=== PATIENT | female | born 1935 | race Caucasian/White ===

== ENCOUNTER 2020-07-12 14:33 | Outpatient (REF) | payer MEDICARE, SELFPAY ==
[2020-07-12 15:09] LABS: MANUAL DIFF FLAG SCAN; Mean Corpuscular Volume 97.1 fL (80-98); PLT CLUMP 1; SCAN SMEAR FLAG 1
[2020-07-12 15:11] LABS: Basophils Absolute Auto 0.1 X10*3/uL (0.0-0.2); Basophils Percent Auto 0.5 % (0-2); Eosinophils Percent Auto 0.1 % (0-4); Hematocrit 43.7 % (37-47); Imm Gran Abs Auto 0.06 X10*3/uL (0.00-0.03); Imm Gran Pct Auto 0.4 % (0.0-0.4); Lymphocytes Absolute Auto 3.3 X10*3/uL (1.2-4.9); Mean Corpuscular Hemoglobin 31.1 pg (27.0-33.0); Mean Platelet Volume 9.8 fL (9.4-12.3); Monocytes Absolute Auto 1.1 X10*3/uL (0.1-1.2); Neutrophils Absolute Auto 9.7 X10*3/uL (2.0-8.3); Platelet Count 327 X10*3/uL (160-400); White Blood Count 14.2 X10*3/uL (4.8-10.8)
[2020-07-12 15:33] LABS: Alanine Aminotransferase 16 U/L (0-31); Alkaline Phosphatase 90 U/L (39-117); Anion Gap 19 (12-20); Aspartate Amino Transferase 23 U/L (5-31); Bilirubin Total 0.6 mg/dL (0.0-1.0); Blood Urea Nitrogen 15 mg/dL (9-16); Calcium 9.7 mg/dL (8.4-10.2); Carbon Dioxide 27 mmol/L (22-29); Chloride 102 mmol/L (96-108); Cholesterol 187 mg/dL; Estimated Glomerular Filt Rate 28; Glucose Random 133 mg/dL (60-115); HDL Cholesterol 75 mg/dL; LDL Cholesterol Calculated 87 mg/dl; Potassium 3.3 mmol/L (3.3-5.1); Sodium 145 mmol/L (135-145); Total Protein 6.8 g/dL (6.5-8.0); Triglycerides 129 mg/dL
[2020-07-12 15:50] LABS: Thyroid Stimulating Hormone 1.47 uIU/mL (0.32-4.0)
[2020-07-12 16:30] LABS: SLIDE REVIEW VERIFIED
[2020-07-12 17:25] LABS: Vitamin B12 401 pg/mL (200-900)
== END 2020-07-12 14:34 | disposition home or self-care (01) ==
LOC: HO.LAB 14:33
PROVIDERS: PCP Internal Medicine; Visit Provider Internal Medicine
DX: Z00.00 Encounter for general adult medical examination without abnormal findings (principal); D51.9 Vitamin B12 deficiency anemia, unspecified; E03.9 Hypothyroidism, unspecified; F03.90 Unspecified dementia, unspecified severity, without behavioral disturbance, psychotic disturbance, mood disturbance, and anxiety; I12.0 Hypertensive chronic kidney disease with stage 5 chronic kidney disease or end stage renal disease; N18.5 Chronic kidney disease, stage 5; J44.1 Chronic obstructive pulmonary disease with (acute) exacerbation
CPT/HCPCS: 36415; 80053; 80061; 82607; 84443; 85025

== ENCOUNTER 2020-10-18 12:54 | Outpatient (REF) | payer MEDICARE, SELFPAY ==
[2020-10-18 13:32] LABS: MANUAL DIFF FLAG NO
[2020-10-18 13:35] LABS: Basophils Absolute Auto 0.1 X10*3/uL (0.0-0.2); Basophils Percent Auto 0.5 % (0-2); Hematocrit 44.6 % (37-47); Hemoglobin 14.9 g/dl (12.0-16.0); Imm Gran Abs Auto 0.07 X10*3/uL (0.00-0.03); Imm Gran Pct Auto 0.5 % (0.0-0.4); Lymphocytes Absolute Auto 3.9 X10*3/uL (1.2-4.9); Lymphocytes Percent Auto 27.3 % (20-40); Mean Corpuscular HGB Conc 33.4 g/dl (31.0-35.0); Mean Corpuscular Hemoglobin 31.5 pg (27.0-33.0); Mean Corpuscular Volume 94.3 fL (80-98); Mean Platelet Volume 9.3 fL (9.4-12.3); Monocytes Percent Auto 6.7 % (2-11); Neutrophils Absolute Auto 9.2 X10*3/uL (2.0-8.3); Platelet Count 344 X10*3/uL (160-400); Red Blood Count 4.73 X10*6/uL (4.20-5.50); Red Cell Distribution Width 14.6 % (11.0-16.0); White Blood Count 14.2 X10*3/uL (4.8-10.8)
[2020-10-18 14:09] LABS: Alanine Aminotransferase 8 U/L (0-31); Albumin Level 3.9 g/dL (3.5-5.0); Alkaline Phosphatase 98 U/L (39-117); Anion Gap 16 (12-20); Aspartate Amino Transferase 15 U/L (5-31); Bilirubin Total 0.6 mg/dL (0.0-1.0); Blood Urea Nitrogen 13 mg/dL (9-16); Calcium 9.9 mg/dL (8.4-10.2); Carbon Dioxide 33 mmol/L (22-29); Chloride 98 mmol/L (96-108); Cholesterol 180 mg/dL; Estimated Glomerular Filt Rate 30; Glucose Random 123 mg/dL (60-115); HDL Cholesterol 68 mg/dL; LDL Cholesterol Calculated 87 mg/dl; Potassium 2.7 mmol/L (3.3-5.1); Sodium 144 mmol/L (135-145); Total Protein 6.7 g/dL (6.5-8.0); Triglycerides 125 mg/dL
[2020-10-18 14:25] LABS: Thyroid Stimulating Hormone 1.45 uIU/mL (0.32-4.0)
[2020-10-18 14:32] LABS: Vitamin B12 343 pg/mL (200-900)
[2020-10-21 13:02] LABS: Prot Elec - Albumin 3.7 g/dL (3.8-4.8); Prot Elec - Alpha1 0.5 g/dL (0.2-0.3); Prot Elec - Alpha2 0.9 g/dL (0.5-0.9); Prot Elec - Beta 1 0.4 g/dL (0.4-0.6); Prot Elec - Beta 2 0.4 g/dL (0.2-0.5); Prot Elec - Gamma 0.7 g/dL (0.8-1.7); Prot Elec - Total Protein 6.6 g/dL (6.1-8.1)
== END 2020-10-18 12:55 | disposition home or self-care (01) ==
LOC: HO.LAB 12:54
PROVIDERS: PCP Internal Medicine; Visit Provider Internal Medicine
DX: E03.9 Hypothyroidism, unspecified (principal); F03.90 Unspecified dementia, unspecified severity, without behavioral disturbance, psychotic disturbance, mood disturbance, and anxiety; I12.0 Hypertensive chronic kidney disease with stage 5 chronic kidney disease or end stage renal disease; R63.0 Anorexia; N18.5 Chronic kidney disease, stage 5
CPT/HCPCS: 36415; 80053; 80061; 82607; 82746; 84165; 84443; 85025

== ENCOUNTER 2021-03-05 15:35 | Outpatient (REF) | payer MEDICARE, SELFPAY ==
[2021-03-05 15:57] LABS: MANUAL DIFF FLAG NO
[2021-03-05 17:15] LABS: Basophils Absolute Auto 0.1 X10*3/uL (0.0-0.2); Basophils Percent Auto 0.5 % (0-2); Hematocrit 44.5 % (37.0-47.0); Hemoglobin 13.9 g/dl (12.0-16.0); Imm Gran Abs Auto 0.11 X10*3/uL (0.00-0.03); Imm Gran Pct Auto 0.7 % (0.0-0.4); Lymphocytes Absolute Auto 4.7 X10*3/uL (1.2-4.9); Lymphocytes Percent Auto 29.2 % (20-40); Mean Corpuscular HGB Conc 31.2 g/dl (31.0-35.0); Mean Corpuscular Hemoglobin 31.4 pg (27.0-33.0); Mean Corpuscular Volume 100.7 fL (80.0-98.0); Mean Platelet Volume 9.8 fL (9.4-12.3); Monocytes Absolute Auto 0.9 X10*3/uL (0.1-1.2); Monocytes Percent Auto 5.8 % (2-11); Neutrophils Absolute Auto 10.2 x10*3/uL (2.0-8.3); Neutrophils Percent Auto 63.8 % (45-73); Platelet Count 386 X10*3/uL (160-400); Red Blood Count 4.42 X10*6/uL (4.20-5.50); Red Cell Distribution Width 15.2 % (11.0-16.0)
[2021-03-05 17:45] LABS: Alanine Aminotransferase 13 U/L (0-31); Albumin Level 3.9 g/dL (3.5-5.0); Alkaline Phosphatase 89 U/L (39-117); Anion Gap 21 (12-20); Aspartate Amino Transferase 21 U/L (5-31); Bilirubin Total 0.6 mg/dL (0.0-1.0); Blood Urea Nitrogen 27 mg/dL (9-16); Calcium 10.1 mg/dL (8.4-10.2); Carbon Dioxide 21 mmol/L (22-29); Chloride 108 mmol/L (96-108); Estimated Glomerular Filt Rate 26; Glucose Random 128 mg/dL (60-115); Potassium 4.2 mmol/L (3.3-5.1); Sodium 146 mmol/L (135-145)
== END 2021-03-05 15:36 | disposition home or self-care (01) ==
LOC: HO.LAB 15:35
PROVIDERS: PCP Internal Medicine; Visit Provider Internal Medicine
DX: E03.8 Other specified hypothyroidism (principal); F02.80 Dementia in other diseases classified elsewhere, unspecified severity, without behavioral disturbance, psychotic disturbance, mood disturbance, and anxiety; I12.0 Hypertensive chronic kidney disease with stage 5 chronic kidney disease or end stage renal disease; N18.9 Chronic kidney disease, unspecified; R63.4 Abnormal weight loss
CPT/HCPCS: 36415; 80053; 85025

== ENCOUNTER 2021-05-11 15:34 | Inpatient (IN) | payer MEDICARE, SELFPAY ==
[2021-05-11] VITALS (8 sets, daily range): BP systolic 106–118; BP diastolic 45–79; PULSE 77–98; RESP 29–39; TEMP 35.5; O2SAT 85–98; BMI 18.8
--- NOTE | ~2021-05-11 | XR_ITS ---
EXAMINATION: XR CHEST CLINICAL INFORMATION: Hypoxia COMPARISON: 03/18/2019 TECHNIQUE: 2 views of the chest were obtained. FINDINGS: Lungs hyperinflated. Bilateral bronchiectatic changes. No discrete consolidation. Biapical pleural-parenchymal scarring unchanged. No pleural effusion or pneumothorax. Heart size and pulmonary vascularity within normal limits. Aorta is atherosclerotic. XR/XR chest 1V IMPRESSION: No acute findings. Emphysema and bronchiectasis.
--- NOTE | ~2021-05-11 | CT_ITS ---
EXAMINATION: CT HEAD WITHOUT CONTRAST CLINICAL INFORMATION: Altered mental status. Weakness. COMPARISON: None TECHNIQUE: Contiguous axial imaging was performed from the skull base to vertex without intravenous administration of contrast. This CT examination was performed using dose optimization techniques as appropriate, variously including the following: *Automated exposure control *Adjustment of mA and/or kV according to patient size (this includes techniques or standardized protocols for targeted exams where dose is matched to indication/reason for exam; i.e. extremities or head) *Use of iterative reconstruction technique DLP: 569 mGy-cm FINDINGS: There is atherosclerotic calcification of cavernous carotid arteries and proximal intradural segments of vertebral arteries.. Patchy hypoattenuation within supratentorial white matter from chronic microangiopathy. Moderate volume loss with commensurate prominence of ventricles and sulci. No hydrocephalus. There is an area of hypoattenuation/gliosis from infarction in the right parietal lobe. No findings of an acute major vascular territory infarction. No intracranial hemorrhage or extra-axial fluid collection. There appear to be prominent perivascular spaces inferior to the basal ganglia. 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 The calvarium is intact. The visualized paranasal sinuses, mastoid air cells and middle ear cavities are well aerated. There been ocular lens replacements. CT/CT head/brain wo con IMPRESSION: * Moderate volume loss and small vessel ischemic changes of the supratentorial white matter. 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 * No intracranial hemorrhage or other acute intracranial pathology.
--- NOTE | 2021-05-11 16:32 | ECG_ITS ---
Test Reason : shortness of breath Blood Pressure : / mmHG Vent. Rate : 077 BPM Atrial Rate : 077 BPM P-R Int : 104 ms QRS Dur : 062 ms QT Int : 364 ms P-R-T Axes : 068 062 060 degrees QTc Int : 411 ms Sinus rhythm with short NM with Premature atrial complexes Otherwise normal ECG When compared with ECG of 18-MAR-2019 15:53, Premature atrial complexes are now Present T wave inversion no longer evident in Lateral leads Referred By: Eliane Fraga Electronically Signed By:Ruel Arellano
[2021-05-11 16:39] LABS: Basophils Absolute Auto 0.1 X10*3/uL (0.0-0.2); Basophils Percent Auto 0.4 % (0-2); Hematocrit 53.3 % (37.0-47.0); Imm Gran Abs Auto 0.41 X10*3/uL (0.00-0.03); Imm Gran Pct Auto 1.9 % (0.0-0.4); Lymphocytes Absolute Auto 0.9 X10*3/uL (1.2-4.9); Lymphocytes Percent Auto 4.2 % (20-40); MANUAL DIFF FLAG NO; Mean Corpuscular Hemoglobin 31.6 pg (27.0-33.0); Mean Corpuscular Volume 105.3 fL (80.0-98.0); Monocytes Absolute Auto 1.2 X10*3/uL (0.1-1.2); Monocytes Percent Auto 5.5 % (2-11); NRBC Pct Auto 0.1 /100WBC (0.0-0.2); Platelet Count 185 X10*3/uL (160-400); Red Blood Count 5.06 X10*6/uL (4.20-5.50); Red Cell Distribution Width 16.5 % (11.0-16.0); White Blood Count 21.5 X10*3/uL (4.8-10.8)
--- NOTE | 2021-05-11 16:40 | ED.AMS ---
HPI - Altered Mental Status General Stated Complaint: Weakness/loss of Appettite Time Seen by Provider: 05/11/21 16:15 Source: patient and EMS Mode of arrival: EMS History of Present Illness HPI narrative: 86-year-old female with past medical history of COPD, dementia, BIBA from home for reported failure to thrive. Per son/welder apprentice combination patient with increasing weakness for the past 4 days, with inability to use walker, interact or use draw to drink, +anorexia. At baseline one-word answers. Denies known fever History limited due to patient's acute mental status/baseline dementia MD complaint: altered mental status, confusion and weakness Onset (ago): day(s) Related Data Home Medications Medication Instructions Recorded Confirmed atorvastatin 20 mg tablet 1 tab PO BEDTIME 05/11/21 05/11/21 donepezil 10 mg tablet 1 tab PO DAILY 05/11/21 05/11/21 levothyroxine 50 mcg tablet 1 tab PO DAILY 05/11/21 05/11/21 nifedipine 60 mg tablet,extended 1 tab PO DAILY 05/11/21 05/11/21 release potassium chloride 20 mEq 1 tab PO BID 05/11/21 05/11/21 tablet,extended release(part/cryst) (Klor-Con M) prednisone 5 mg tablet 1 tab PO DAILY 05/11/21 05/11/21 Allergies Allergy/AdvReac Type Severity Reaction Status Date / Time No Known Allergies Allergy Unverified 11/30/19 15:42 [No Known Allergies*] Review of Systems Review of Systems: Constitutional: No Fever, + Fatigue, + Malaise, +anorexia Cardiovascular: No Chest Pain, No SOB, + Edema Respiratory: No Cough, No Sputum, + Dyspnea Gastrointestinal: No Nausea, No Vomiting, No Diarrhea, No Constipation, No Abdominal pain Skin: No Skin Lesions, No rash Neuro: + Weakness ROS limited secondary to patient's baseline dementia and acute mental status Yes all other systems are reviewed and are negative PMFSH Past Medical History Attestation statement: The following information was validated with the patient. Social History Social History Advance Directives: No Advance Directives Information Provided: No Physical Exam ED Vital Signs: Vital Signs - 24 hr 05/11/21 16:51 05/11/21 17:04 05/11/21 17:22 Temperature 96 F L Pulse Rate 77 78 Respiratory Rate 37 H 39 H Blood Pressure Pulse Oximetry 85 L 95 05/11/21 18:56 05/11/21 19:05 05/11/21 19:11 Temperature Pulse Rate 98 77 Respiratory Rate 31 H 33 H Blood Pressure 106/64 118/45 L Pulse Oximetry 95 05/11/21 20:25 Temperature Pulse Rate 81 Respiratory Rate 30 H Blood Pressure 108/79 Pulse Oximetry 97 BMI result Body Mass Index 18.8 Const Other: nonverbal/not responding or following commands General: alert and awake Limitations: altered mental status HENMT Head: Yes normal to inspection and Yes atraumatic Ears: hearing grossly normal bilaterally General nose exam: Normal external nose present Face and sinus: Yes normal facial exam Mouth: mucous membranes dry Eyes General: appearance normal, both eyes and all related structures Pupils: Equal, round and reactive pupils present EOM: EOMs intact bilaterally Neck Neck: Yes normal visual inspection and Yes no meningeal signs Resp Effort & Inspection: tachypneic Auscultation: crackles bilateral throughout Cardio Rate: regular rate Heart sounds: S1 normal heart sound present and S2 normal heart sound present GI Inspection: Yes normal to inspection Palpation (GI): Soft to palpation, nontender, no guarding and not rigid Skin Rashes: no rashes Wounds: no wounds Neuro General: no meningeal signs Cranial nerves: Yes Equal, round and reactive pupils present Course Course Course Narrative: XR chest 1V IMPRESSION: No acute findings. Emphysema and bronchiectasis. -1707--leukocytosis of 21.5 (patient is on chronic prednisone contributing to acute on chronic leukocytosis. -1800--hypernatremic to 161 > will start D5w after 1L NS -Hyperkalemic 7.7, anion gap of 26, SHIVA with BUN of 114 and creatinine of 4.51 > likely from starvation ketoacidosis > amp D50, insulin, calcium gluconate and Lokelma ordered -case d/w Dr. Barrientos CT head/brain wo con IMPRESSION: *? Moderate volume loss and small vessel ischemic changes of the supratentorial white matter. *? 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 *? No intracranial hemorrhage or other acute intracranial pathology. -1828--lactic acidosis 3.8 likely starvation/dehydration. Lokelma discontinued as patient unable to tolerate p.o. due to aspiration risk -UA infected, infection now suspected. -193--troponin 930.5 likely from renal dysfunction > will obtain for a repeat -2028--patient admitted for further management -repeat Chem 7 with mild improvement in sodium, potassium, and creatinine. Lactic equivocal. D5W being started now. Will give an amp of bicarb, additional D50 and insulin MDM - Altered Mental Status MDM Narrative Medical decision making narrative: 86-year-old female with past medical history of COPD, dementia, BIBA from home for reported failure to thrive. On exam tachypneic, 85% on RA > 97% on 3L NC, diffuse crackles, awake/alert nonverbal/not responding or following commands. Concern for FTT and dehydrationg with metabolic abnormalitites. Concern for COPD exacerbation vs CHF vs pleural effusion vs viral syndrome his COVID-19 vs pneumonia or other infectious etiologies. Plan: EKG, labs, UA, CXR, head CT, IVF, lactic/blood cultures, empiric IV antibiotics, re-evaluate. Anticipated admission Differential Diagnosis Differential diagnosis: Likely delirium, dementia and encephalopathy Medical Records Attestation: I reviewed the patient's medical records. Lab Data Attestation: I reviewed the patient's lab results. Result diagrams: 05/11/21 16:17 05/11/21 19:58 Labs: Lab Results 05/11/21 05/11/21 05/11/21 Range/Units 16:17 17:30 17:51 WBC 21.5 H (4.8-10.8) X10*3/uL RBC 5.06 (4.20-5.50) X10*6/uL Hgb 16.0 (12.0-16.0) g/dl Hct 53.3 H (37.0-47.0) % MCV 105.3 H (80.0-98.0) fL MCH 31.6 (27.0-33.0) pg MCHC 30.0 L (31.0-35.0) g/dl RDW 16.5 H (11.0-16.0) % Plt Count 185 D (160-400) X10*3/uL MPV 12.0 (9.4-12.3) fL Immature Gran % (Auto) 1.9 H (0.0-0.4) % Neut % (Auto) 88.0 H (45-73) % Lymph % (Auto) 4.2 L (20-40) % [place] % (Auto) 5.5 (2-11) % Eos % (Auto) 0.0 (0-4) % Baso % (Auto) 0.4 (0-2) % Lymph # (Auto) 0.9 L (1.2-4.9) X10*3/uL [place] # (Auto) 1.2 (0.1-1.2) X10*3/uL Eos # (Auto) 0.0 (0.0-0.4) X10*3/uL Baso # (Auto) 0.1 (0.0-0.2) X10*3/uL Abs Immat Gran (auto) 0.41 H (0.00-0.03) X10*3/uL Absolute Neuts (auto) 19.0 H (2.0-8.3) x10*3/uL Absolute Nucleated RBC 0.020 H (0.0-0.012) X10*3/uL Nucleated RBC % (auto) 0.1 (0.0-0.2) /100WBC PT (9.9-13.0) SEC INR (0.9-1.1) Sodium 161 H* (135-145) mmol/L Potassium 7.7 H* D (3.3-5.1) mmol/L Chloride 128 H (96-108) mmol/L Carbon Dioxide 15 L (22-29) mmol/L Anion Gap 26 H (12-20) BUN 114 H D (9-16) mg/dL Creatinine 4.51 H* (0.5-1.4) mg/dL Estim Creat Clear Calc 6.8 Estimated GFR 9 POC Glucose (60-115) mg/dL Random Glucose 122 H (60-115) mg/dL Lactic Acid (0.5-2.0) mmol/L Lactic Acid F/U @ 2Hr (0.5-2.0) mmol/L Calcium 10.3 H (8.4-10.2) mg/dL Magnesium 3.3 H (1.6-2.6) mg/dL Total Bilirubin 0.6 (0.0-1.0) mg/dL Direct Bilirubin 0.3 (0.0-0.5) mg/dL AST 29 (5-31) U/L ALT 31 (0-31) U/L Alkaline Phosphatase 99 (39-117) U/L Ammonia 32 (13-55) umol/L Troponin I High Sens (<3.5-17.0) ng/L B-Natriuretic Peptide (<100) pg/mL Total Protein 6.3 L (6.5-8.0) g/dL Albumin 3.6 (3.5-5.0) g/dL Urine Color Urine Appearance Urine pH (5.0-8.0) Ur Specific [place] (1.005-1.025) Urine Protein (NEG-TRACE) MG/DL Urine Glucose (UA) (NEG) MG/DL Urine Ketones (NEG) MG/DL Urine Blood (NEG) Urine Nitrite (NEG) Ur Leukocyte Esterase (NEG) Urine RBC (0) /HPF Urine WBC (0-4) /HPF Ur Squamous Epith Cells /LPF Urine Bacteria /LPF COVID-19 (PEDRO) (Negative) COVID-19 Clin Com Influenza Type A (PCR) (Negative) Influenza Type B (PCR) (Negative) RSV RNA Qual (PCR) (Negative) SARS-CoV-2 RNA (RT-PCR) (Negative) 05/11/21 05/11/21 05/11/21 Range/Units 17:51 17:51 17:52 WBC (4.8-10.8) X10*3/uL RBC (4.20-5.50) X10*6/uL Hgb (12.0-16.0) g/dl Hct (37.0-47.0) % MCV (80.0-98.0) fL MCH (27.0-33.0) pg MCHC (31.0-35.0) g/dl RDW (11.0-16.0) % Plt Count (160-400) X10*3/uL MPV (9.4-12.3) fL Immature Gran % (Auto) (0.0-0.4) % Neut % (Auto) (45-73) % Lymph % (Auto) (20-40) % [place] % (Auto) (2-11) % Eos % (Auto) (0-4) % Baso % (Auto) (0-2) % Lymph # (Auto) (1.2-4.9) X10*3/uL [place] # (Auto) (0.1-1.2) X10*3/uL Eos # (Auto) (0.0-0.4) X10*3/uL Baso # (Auto) (0.0-0.2) X10*3/uL Abs Immat Gran (auto) (0.00-0.03) X10*3/uL Absolute Neuts (auto) (2.0-8.3) x10*3/uL Absolute Nucleated RBC (0.0-0.012) X10*3/uL Nucleated RBC % (auto) (0.0-0.2) /100WBC PT (9.9-13.0) SEC INR (0.9-1.1) Sodium (135-145) mmol/L Potassium (3.3-5.1) mmol/L Chloride (96-108) mmol/L Carbon Dioxide (22-29) mmol/L Anion Gap (12-20) BUN (9-16) mg/dL Creatinine (0.5-1.4) mg/dL Estim Creat Clear Calc Estimated GFR POC Glucose (60-115) mg/dL Random Glucose (60-115) mg/dL Lactic Acid 3.8 H* (0.5-2.0) mmol/L Lactic Acid F/U @ 2Hr (0.5-2.0) mmol/L Calcium (8.4-10.2) mg/dL Magnesium (1.6-2.6) mg/dL Total Bilirubin (0.0-1.0) mg/dL Direct Bilirubin (0.0-0.5) mg/dL AST (5-31) U/L ALT (0-31) U/L Alkaline Phosphatase (39-117) U/L Ammonia (13-55) umol/L Troponin I High Sens (<3.5-17.0) ng/L B-Natriuretic Peptide (<100) pg/mL Total Protein (6.5-8.0) g/dL Albumin (3.5-5.0) g/dL Urine Color Urine Appearance Urine pH (5.0-8.0) Ur Specific [place] (1.005-1.025) Urine Protein (NEG-TRACE) MG/DL Urine Glucose (UA) (NEG) MG/DL Urine Ketones (NEG) MG/DL Urine Blood (NEG) Urine Nitrite (NEG) Ur Leukocyte Esterase (NEG) Urine RBC (0) /HPF Urine WBC (0-4) /HPF Ur Squamous Epith Cells /LPF Urine Bacteria /LPF COVID-19 (PEDRO) Negative (Negative) COVID-19 Clin Com See Note Influenza Type A (PCR) NEGATIVE (Negative) Influenza Type B (PCR) NEGATIVE (Negative) RSV RNA Qual (PCR) NEGATIVE (Negative) SARS-CoV-2 RNA (RT-PCR) NEGATIVE (Negative) 05/11/21 05/11/21 05/11/21 Range/Units 18:15 18:38 18:39 WBC (4.8-10.8) X10*3/uL RBC (4.20-5.50) X10*6/uL Hgb (12.0-16.0) g/dl Hct (37.0-47.0) % MCV (80.0-98.0) fL MCH (27.0-33.0) pg MCHC (31.0-35.0) g/dl RDW (11.0-16.0) % Plt Count (160-400) X10*3/uL MPV (9.4-12.3) fL Immature Gran % (Auto) (0.0-0.4) % Neut % (Auto) (45-73) % Lymph % (Auto) (20-40) % [place] % (Auto) (2-11) % Eos % (Auto) (0-4) % Baso % (Auto) (0-2) % Lymph # (Auto) (1.2-4.9) X10*3/uL [place] # (Auto) (0.1-1.2) X10*3/uL Eos # (Auto) (0.0-0.4) X10*3/uL Baso # (Auto) (0.0-0.2) X10*3/uL Abs Immat Gran (auto) (0.00-0.03) X10*3/uL Absolute Neuts (auto) (2.0-8.3) x10*3/uL Absolute Nucleated RBC (0.0-0.012) X10*3/uL Nucleated RBC % (auto) (0.0-0.2) /100WBC PT 11.3 (9.9-13.0) SEC INR 1.0 (0.9-1.1) Sodium (135-145) mmol/L Potassium (3.3-5.1) mmol/L Chloride (96-108) mmol/L Carbon Dioxide (22-29) mmol/L Anion Gap (12-20) BUN (9-16) mg/dL Creatinine (0.5-1.4) mg/dL Estim Creat Clear Calc Estimated GFR POC Glucose (60-115) mg/dL Random Glucose (60-115) mg/dL Lactic Acid (0.5-2.0) mmol/L Lactic Acid F/U @ 2Hr (0.5-2.0) mmol/L Calcium (8.4-10.2) mg/dL Magnesium (1.6-2.6) mg/dL Total Bilirubin (0.0-1.0) mg/dL Direct Bilirubin (0.0-0.5) mg/dL AST (5-31) U/L ALT (0-31) U/L Alkaline Phosphatase (39-117) U/L Ammonia (13-55) umol/L Troponin I High Sens 950.5 H* (<3.5-17.0) ng/L B-Natriuretic Peptide 88 (<100) pg/mL Total Protein (6.5-8.0) g/dL Albumin (3.5-5.0) g/dL Urine Color BROWN A Urine Appearance TURBID Urine pH 8.0 (5.0-8.0) Ur Specific [place] 1.020 (1.005-1.025) Urine Protein 3+ H (NEG-TRACE) MG/DL Urine Glucose (UA) NEG (NEG) MG/DL Urine Ketones 5 (NEG) MG/DL Urine Blood 3+ H (NEG) Urine Nitrite NEG (NEG) Ur Leukocyte Esterase 3+ H (NEG) Urine RBC 30-49 H (0) /HPF Urine WBC TNTC H (0-4) /HPF Ur Squamous Epith Cells NONE /LPF Urine Bacteria 4+ /LPF COVID-19 (PEDRO) (Negative) COVID-19 Clin Com Influenza Type A (PCR) (Negative) Influenza Type B (PCR) (Negative) RSV RNA Qual (PCR) (Negative) SARS-CoV-2 RNA (RT-PCR) (Negative) 05/11/21 05/11/21 05/11/21 Range/Units 19:49 19:58 20:04 WBC (4.8-10.8) X10*3/uL RBC (4.20-5.50) X10*6/uL Hgb (12.0-16.0) g/dl Hct (37.0-47.0) % MCV (80.0-98.0) fL MCH (27.0-33.0) pg MCHC (31.0-35.0) g/dl RDW (11.0-16.0) % Plt Count (160-400) X10*3/uL MPV (9.4-12.3) fL Immature Gran % (Auto) (0.0-0.4) % Neut % (Auto) (45-73) % Lymph % (Auto) (20-40) % [place] % (Auto) (2-11) % Eos % (Auto) (0-4) % Baso % (Auto) (0-2) % Lymph # (Auto) (1.2-4.9) X10*3/uL [place] # (Auto) (0.1-1.2) X10*3/uL Eos # (Auto) (0.0-0.4) X10*3/uL Baso # (Auto) (0.0-0.2) X10*3/uL Abs Immat Gran (auto) (0.00-0.03) X10*3/uL Absolute Neuts (auto) (2.0-8.3) x10*3/uL Absolute Nucleated RBC (0.0-0.012) X10*3/uL Nucleated RBC % (auto) (0.0-0.2) /100WBC PT (9.9-13.0) SEC INR (0.9-1.1) Sodium 159 H (135-145) mmol/L Potassium 6.6 H* (3.3-5.1) mmol/L Chloride 129 H (96-108) mmol/L Carbon Dioxide 15 L (22-29) mmol/L Anion Gap 22 H (12-20) BUN 110 H (9-16) mg/dL Creatinine 4.35 H* (0.5-1.4) mg/dL Estim Creat Clear Calc 7.1 Estimated GFR 10 POC Glucose 194 H (60-115) mg/dL Random Glucose 232 H (60-115) mg/dL Lactic Acid (0.5-2.0) mmol/L Lactic Acid F/U @ 2Hr 3.8 H* (0.5-2.0) mmol/L Calcium 9.7 (8.4-10.2) mg/dL Magnesium (1.6-2.6) mg/dL Total Bilirubin (0.0-1.0) mg/dL Direct Bilirubin (0.0-0.5) mg/dL AST (5-31) U/L ALT (0-31) U/L Alkaline Phosphatase (39-117) U/L Ammonia (13-55) umol/L Troponin I High Sens (<3.5-17.0) ng/L B-Natriuretic Peptide (<100) pg/mL Total Protein (6.5-8.0) g/dL Albumin (3.5-5.0) g/dL Urine Color Urine Appearance Urine pH (5.0-8.0) Ur Specific [place] (1.005-1.025) Urine Protein (NEG-TRACE) MG/DL Urine Glucose (UA) (NEG) MG/DL Urine Ketones (NEG) MG/DL Urine Blood (NEG) Urine Nitrite (NEG) Ur Leukocyte Esterase (NEG) Urine RBC (0) /HPF Urine WBC (0-4) /HPF Ur Squamous Epith Cells /LPF Urine Bacteria /LPF COVID-19 (PEDRO) (Negative) COVID-19 Clin Com Influenza Type A (PCR) (Negative) Influenza Type B (PCR) (Negative) RSV RNA Qual (PCR) (Negative) SARS-CoV-2 RNA (RT-PCR) (Negative) ECG Data ECG #1: ECG interpretation time: 16:57 Interpretation: EKG sinus rhythm iterative 77. Artifact present. Q-wave in V1. No STEMI. QTC 411 Critical Care Time Critical Care Time Critical Care Time: Yes Total Critical Care Time: 60 Attestation: I have personally provided critical care time exclusive of time spent on separately billable procedures. Time includes review of lab data, radiology results, discussion with consultants, and monitoring for potential decompensation. Intervention performed as documented. Discharge Plan Discharge Clinical Impression: Acute UTI, COPD (chronic obstructive pulmonary disease), Acute kidney injury superimposed on CKD, Acute hyperkalemia, Acute hypernatremia Patient Disposition: Admitted As Inpatient
[2021-05-11] MEDS: 0.9 % Sodium Chloride 1,000 ML 999 ML IV (16:50)
--- NOTE | 2021-05-11 16:54 | PC.NURSE ---
This Us Called phlebotomy for the pct at 1654 for room 21
[2021-05-11] MEDS: Albuterol/Iprat 2.5/0.5MG 3 ML AMPUL.NEB INHALE ×2 (17:04→18:55)
--- NOTE | 2021-05-11 17:13 | PHA.MEDREC ---
Pharmacy Consult ? Medication Reconciliation Pharmacy has completed the medication reconciliation. Spoke with the patients son, who said she was struggling to take medications the last few days but he got her to take them last on 05/10.
[2021-05-11 17:58] LABS: Alanine Aminotransferase 31 U/L (0-31); Albumin Level 3.6 g/dL (3.5-5.0); Alkaline Phosphatase 99 U/L (39-117); Anion Gap 26 (12-20); Aspartate Amino Transferase 29 U/L (5-31); Bilirubin Direct 0.3 mg/dL (0.0-0.5); Bilirubin Total 0.6 mg/dL (0.0-1.0); Blood Urea Nitrogen 114 mg/dL (9-16); Calcium 10.3 mg/dL (8.4-10.2); Carbon Dioxide 15 mmol/L (22-29); Chloride 128 mmol/L (96-108); Creatinine Clr Calc Pharmacy 6.8; Estimated Glomerular Filt Rate 9; Glucose Random 122 mg/dL (60-115); Magnesium 3.3 mg/dL (1.6-2.6); Potassium 7.7 mmol/L (3.3-5.1); Sodium 161 mmol/L (135-145); Total Protein 6.3 g/dL (6.5-8.0)
[2021-05-11 18:15] LABS: Ammonia 32 umol/L (13-55)
[2021-05-11 18:17] LABS: COVID-19 Test Negative (Negative)
[2021-05-11 18:26] LABS: Lactic Acid 3.8 mmol/L (0.5-2.0)
[2021-05-11 18:41] LABS: Influenza A PCR NEGATIVE (Negative); Influenza B PCR NEGATIVE (Negative); Resp Syncy Virus RNA Qual PCR NEGATIVE (Negative); SARS COV2 PCR INHOUSE NEGATIVE (Negative)
[2021-05-11 18:49] LABS: Appearance Urine TURBID; Color Urine BROWN; Glucose Urine UA NEG (NEG); Leukocyte Esterase Urine 3+ (NEG); Nitrite Urine NEG (NEG); UACC Culture Trigger YES; Urine Blood 3+ (NEG); Urine Ketones 5 MG/DL (NEG); Urine Protein 3+ MG/DL (NEG-TRACE)
[2021-05-11] MEDS: Calcium Gluconate/NaCl,Iso-Osm 1 GM/50 ML PLAST..BAG IV (18:49)
[2021-05-11] MEDS: cefTRIAXone sodium 1 GM in 0.9 % Sodium Chloride 50 ML IV (18:52)
[2021-05-11] MEDS: Dextrose 50 % 25 GM/50 ML SYRINGE IVPUSH ×3 (18:57→22:31)
[2021-05-11] MEDS: Insulin Regular, Human 100 UNIT/ML 3 ML VIAL IVPUSH ×3 (18:58→22:27)
[2021-05-11 18:59] LABS: Prothrombin Time 11.3 SEC (9.9-13.0)
[2021-05-11 19:05] LABS: Bacteria Urine 4+ /LPF; RBC Urine 30-49 /HPF (0); WBC Urine TNTC /HPF (0-4)
[2021-05-11 19:27] LABS: B Type Natriuretic Peptide 88 pg/mL (<100); Troponin-I High Sensitivity 950.5 ng/L (<3.5-17.0)
[2021-05-11 19:52] LABS: Glucose, Whole Blood 194 mg/dL (60-115)
[2021-05-11 19:58] LABS: Reflex Lactate? Lactic Acid Added
--- NOTE | 2021-05-11 20:26 | PC.NURSE ---
patient noted to be slightly more responsive to pain at this time, but continues to be non-verbal. patient is in no obvious distress. noted to move all extremities independently when exposed to pain. patient eyes equal and reactive. family updated on patient condition and plan of care. patient lung sounds are improved after breathing treatments
[2021-05-11 20:31] LABS: ~Lactic Acid-LAB USE ONLY 3.8 mmol/L (0.5-2.0)
[2021-05-11 20:32] LABS: Anion Gap 22 (12-20); Blood Urea Nitrogen 110 mg/dL (9-16); Calcium 9.7 mg/dL (8.4-10.2); Carbon Dioxide 15 mmol/L (22-29); Chloride 129 mmol/L (96-108); Creatinine Clr Calc Pharmacy 7.1; Estimated Glomerular Filt Rate 10; Glucose Random 232 mg/dL (60-115); Potassium 6.6 mmol/L (3.3-5.1); Sodium 159 mmol/L (135-145)
[2021-05-11] MEDS: Dextrose 5 % 1,000 ML 125 ML IVCONT (20:38)
[2021-05-11] MEDS: Sodium Bicarbonate 8.4% 50 MEQ/50 ML SYRINGE IVPUSH (20:46)
--- NOTE | 2021-05-11 20:56 | P.HPHOSP_ITS ---
History of Present Illness Date of Service: 05/11/21 Chief Complaint: dehydration This is an 86-year-old female with unknown past medical history was brought into the hospital by her son with reports of decreased intake and increased lethargy. Patient is awake, alert, but does not respond to any of the questio ns. Apparently she lives at home with her son, has not been eating or drinking for few days. Usually able to respond with 1 word answers according to her son but has been declining. She usually ambulates with her walker but has now become nonambulatory. I tried to reach her son's using the numbers on file 1 of them is a fax and the other 1 is a wrong number. I am unable to complete review of system is patient is not responding verbally. She is able to track with her eyes but does not answer. On arrival to the ED patient has a temp of 96 degrees, respiratory rate of 37, heart rate of 77, satting 85% on room air. labs are significant for WBC count of 21.5, sodium of 161, potassium of 7.7, chloride of 128, BUN of 114, creatinine of 4.5 with a baseline around 1.6-1.8, lactic acid of 3.8, troponin of 950.5, urine positive for leukocyte Estrace and WBC. COVID-19 negative Chest x-ray negative CT of the head shows moderate volume loss and small-vessel ischemic changes of the supratentorial white matter. 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 patient will be admitted for further management unable to confirm past medical history, past surgical history, and or social history Review of Systems Review of Systems: Yes all other systems are reviewed and are negative [facility] Social History Advance Directives: No Advance Directives Information Provided: No Meds Allergies Allergy/AdvReac Type Severity Reaction Status Date / Time No Known Allergies Allergy Unverified 11/30/19 15:42 [No Known Allergies*] Active Medications: Current Medications Dextrose (D5w) 1,000 mls @ 125 mls/hr IVCONT .Q8H MARTITA Last Admin: 05/11/21 20:38 Dose: 125 mls/hr Documented by: Pharmacy Consult (Consult Rx Perform Med Rec) 1 each MISCELLANE ONCE PRN PRN Reason: Consult order Home Medications Medication Instructions Recorded Confirmed Last Taken Type atorvastatin 20 mg tablet 1 tab PO BEDTIME 05/11/21 05/11/21 05/10/21 History donepezil 10 mg tablet 1 tab PO DAILY 05/11/21 05/11/21 05/10/21 History levothyroxine 50 mcg tablet 1 tab PO DAILY 05/11/21 05/11/21 05/10/21 History nifedipine 60 mg tablet,extended 1 tab PO DAILY 05/11/21 05/11/21 05/10/21 History release potassium chloride 20 mEq 1 tab PO BID 05/11/21 05/11/21 05/10/21 History tablet,extended release(part/cryst) (Klor-Con M) prednisone 5 mg tablet 1 tab PO DAILY 05/11/21 05/11/21 05/10/21 History Physical Exam Vital Signs and Narrative: Vital Signs: Last Vital Signs Temp 96 F L 05/11/21 16:51 Pulse 81 05/11/21 20:25 Resp 30 H 05/11/21 20:25 BP 108/79 05/11/21 20:25 Pulse Ox 97 05/11/21 20:25 BMI result Body Mass Index 18.8 Const: Other: patient has her eyes open, tracks, but does not respond verbally or nonverbally Eyes: General: appearance normal, both eyes and all related structures Pupils: Equal, round and reactive pupils present Resp: Other: rhonchi her throughout the lungs Effort & Inspection: normal respiratory effort Cardio: Rate: regular rate Rhythm: regular rhythm GI: Palpation (GI): Soft to palpation Auscultation: normal bowel sounds Skin: Other: has extensive ecchymosis throughout her entire body specially in the arms and legs skin tear Neuro: Cranial nerves: Yes Equal, round and reactive pupils present Extrem: Other: nonpitting edema in feet Results Labs CBC and Chem 7: 05/11/21 16:17 05/11/21 23:38 Labs: Laboratory Results - last 24 hr 05/11/21 05/11/21 05/11/21 16:17 17:30 17:51 MCV 105.3 H MCH 31.6 MCHC 30.0 L RDW 16.5 H Plt Count 185 D MPV 12.0 Immature Gran % (Auto) 1.9 H Neut % (Auto) 88.0 H Lymph % (Auto) 4.2 L Taliaferro % (Auto) 5.5 Eos % (Auto) 0.0 Baso % (Auto) 0.4 Lymph # (Auto) 0.9 L [place] # (Auto) 1.2 Eos # (Auto) 0.0 Baso # (Auto) 0.1 Abs Immat Gran (auto) 0.41 H Absolute Neuts (auto) 19.0 H Absolute Nucleated RBC 0.020 H Nucleated RBC % (auto) 0.1 PT INR Anion Gap 26 H Estim Creat Clear Calc 6.8 Estimated GFR 9 POC Glucose Random Glucose 122 H Lactic Acid Lactic Acid F/U @ 2Hr Calcium 10.3 H Magnesium 3.3 H Total Bilirubin 0.6 Direct Bilirubin 0.3 AST 29 ALT 31 Alkaline Phosphatase 99 Ammonia 32 B-Natriuretic Peptide Total Protein 6.3 L Albumin 3.6 Urine Color Urine Appearance Urine pH Ur Specific [place] Urine Protein Urine Glucose (UA) Urine Ketones Urine Blood Urine Nitrite Ur Leukocyte Esterase Urine RBC Urine WBC Ur Squamous Epith Cells Urine Bacteria COVID-19 (PEDRO) COVID-19 Clin Com Influenza Type A (PCR) Influenza Type B (PCR) RSV RNA Qual (PCR) SARS-CoV-2 RNA (RT-PCR) 05/11/21 05/11/21 05/11/21 17:51 17:51 17:52 MCV MCH MCHC RDW Plt Count MPV Immature Gran % (Auto) Neut % (Auto) Lymph % (Auto) [place] % (Auto) Eos % (Auto) Baso % (Auto) Lymph # (Auto) [place] # (Auto) Eos # (Auto) Baso # (Auto) Abs Immat Gran (auto) Absolute Neuts (auto) Absolute Nucleated RBC Nucleated RBC % (auto) PT INR Anion Gap Estim Creat Clear Calc Estimated GFR POC Glucose Random Glucose Lactic Acid 3.8 H* Lactic Acid F/U @ 2Hr Calcium Magnesium Total Bilirubin Direct Bilirubin AST ALT Alkaline Phosphatase Ammonia B-Natriuretic Peptide Total Protein Albumin Urine Color Urine Appearance Urine pH Ur Specific [place] Urine Protein Urine Glucose (UA) Urine Ketones Urine Blood Urine Nitrite Ur Leukocyte Esterase Urine RBC Urine WBC Ur Squamous Epith Cells Urine Bacteria COVID-19 (PEDRO) Negative COVID-19 Clin Com See Note Influenza Type A (PCR) NEGATIVE Influenza Type B (PCR) NEGATIVE RSV RNA Qual (PCR) NEGATIVE SARS-CoV-2 RNA (RT-PCR) NEGATIVE 02/05/11/21 05/11/21 18:15 18:38 18:39 MCV MCH MCHC RDW Plt Count MPV Immature Gran % (Auto) Neut % (Auto) Lymph % (Auto) [place] % (Auto) Eos % (Auto) Baso % (Auto) Lymph # (Auto) [place] # (Auto) Eos # (Auto) Baso # (Auto) Abs Immat Gran (auto) Absolute Neuts (auto) Absolute Nucleated RBC Nucleated RBC % (auto) PT 11.3 INR 1.0 Anion Gap Estim Creat Clear Calc Estimated GFR POC Glucose Random Glucose Lactic Acid Lactic Acid F/U @ 2Hr Calcium Magnesium Total Bilirubin Direct Bilirubin AST ALT Alkaline Phosphatase Ammonia B-Natriuretic Peptide 88 Total Protein Albumin Urine Color BROWN A Urine Appearance TURBID Urine pH 8.0 Ur Specific [place] 1.020 Urine Protein 3+ H Urine Glucose (UA) NEG Urine Ketones 5 Urine Blood 3+ H Urine Nitrite NEG Ur Leukocyte Esterase 3+ H Urine RBC 30-49 H Urine WBC TNTC H Ur Squamous Epith Cells NONE Urine Bacteria 4+ COVID-19 (PEDRO) COVID-19 Clin Com Influenza Type A (PCR) Influenza Type B (PCR) RSV RNA Qual (PCR) SARS-CoV-2 RNA (RT-PCR) 05/11/21 05/11/21 05/11/21 19:49 19:58 20:04 MCV MCH MCHC RDW Plt Count MPV Immature Gran % (Auto) Neut % (Auto) Lymph % (Auto) [place]fer[place] % (Auto) Eos % (Auto) Baso % (Auto) Lymph # (Auto) [place] # (Auto) Eos # (Auto) Baso # (Auto) Abs Immat Gran (auto) Absolute Neuts (auto) Absolute Nucleated RBC Nucleated RBC % (auto) PT INR Anion Gap 22 H Estim Creat Clear Calc 7.1 Estimated GFR 10 POC Glucose 194 H Random Glucose 232 H Lactic Acid Lactic Acid F/U @ 2Hr 3.8 H* Calcium 9.7 Magnesium Total Bilirubin Direct Bilirubin AST ALT Alkaline Phosphatase Ammonia B-Natriuretic Peptide Total Protein Albumin Urine Color Urine Appearance Urine pH Ur Specific [place] Urine Protein Urine Glucose (UA) Urine Ketones Urine Blood Urine Nitrite Ur Leukocyte Esterase Urine RBC Urine WBC Ur Squamous Epith Cells Urine Bacteria COVID-19 (PEDRO) COVID-19 Clin Com Influenza Type A (PCR) Influenza Type B (PCR) RSV RNA Qual (PCR) SARS-CoV-2 RNA (RT-PCR) Imaging Radiologist's Impressions: Impressions Chest X-Ray 05/11/21 16:42 IMPRESSION: No acute findings. Emphysema and bronchiectasis. Head CT 05/11/21 16:58 IMPRESSION: * Moderate volume loss and small vessel ischemic changes of the supratentorial white matter. 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 * No intracranial hemorrhage or other acute intracranial pathology. Assessment and Plan (1) Acute kidney injury superimposed on CKD: Status: Acute (2) Acute hyperkalemia: Status: Acute (3) Acute hypernatremia: Status: Acute (4) Acute UTI: Status: Acute (5) Dehydration: Status: Acute (6) Elevated troponin: Status: Acute Plan 86-year-old female who presents to the hospital brought in by her son for decreased oral intake and increased dehydration and lethargy.found to be severely dehydrated # Hypernatremia - Plan likely secondary to dehydration and poor free water intake - patient is a very difficult IV draw - will start her on D5 water - will follow BMP, will attempt to obtain central line as patient is a very difficult draw, and we have been using her fingerstick for Chem # hyperkalemia - secondary to dehydration and hemoconcentration as well as SHIVA - given calcium gluconate, insulin, albuterol breathing treatment, lokelma and per rectum kayaxalate - no Ekg changes - will admit to telemetry - monitor bmp closely # UTI - leukocytosis, UA p[ositive - will start on IV abx - follow cultures # LA - likely due to severe dehydration - treated with iv fluids # SHIVA - 2/2 dehydration and poor oral intake - IV fluids - follow bmp # elevated troponin - unable to assess for any chest pain - no significant ekg changes to suggest ACS - trend code status: Full code according to the son who gave this to the ED PA I tried reaching the phone numbers on file for both her sons Aki and Kory, 1 numberappears to be a fax, the other for Aki is wrong, and no answers on the 3rd number patient has a very poor prognosis, she is severely dehydrated, were unable to get regular labs due to the dehydration and poor the drop. Will attempt a central line placement but code status need to be we discussed with family as pt has very poor prognosis Quality Stroke Does the patient have a stroke diagnosis?: No VTE Prior VTE?: No VTE Risk Level:: Medical - moderate - high VTE Device Contraindication: Treatment Not Indicated VTE Drug Contraindication: N/A - Med Ordered
--- NOTE | 2021-05-11 21:34 | PC.NURSE ---
patient had noted bowel movement. soft brown stool. skin cleansed, new linens applied. reddened area noted to coccyx area. patient more alert at this time, still non-verbal
[2021-05-11] MEDS: Calcium Gluconate/NaCl,Iso-Osm 2 GM/100 ML PLAST..BAG IV (22:04)
[2021-05-11] MEDS: Heparin Sodium,Porcine 5,000 UNIT/ML VIAL 5000 UNIT SUBCUT (22:04)
[2021-05-11 22:07] LABS: Reflex Lactate? 2 Y
[2021-05-11] MEDS: Dextrose 5 % 1,000 ML 100 ML IVCONT (22:09)
[2021-05-11 22:29] LABS: Glucose, Whole Blood 220 mg/dL (60-115)
[2021-05-12] VITALS (10 sets, daily range): BP systolic 87–151; BP diastolic 42–76; PULSE 72–85; RESP 16–38; TEMP 34.7–36.8; O2SAT 92–100; BMI 16.9
[2021-05-12 00:04] LABS: Anion Gap 25 (12-20); Blood Urea Nitrogen 113 mg/dL (9-16); Calcium 10.1 mg/dL (8.4-10.2); Carbon Dioxide 16 mmol/L (22-29); Chloride 129 mmol/L (96-108); Creatinine Clr Calc Pharmacy 7.1; Estimated Glomerular Filt Rate 10; Glucose Random 125 mg/dL (60-115); Potassium 6.7 mmol/L (3.3-5.1); Sodium 163 mmol/L (135-145)
[2021-05-12 00:44] LABS: Glucose, Whole Blood 96 mg/dL (60-115)
[2021-05-12] MEDS: Calcium Gluconate/NaCl,Iso-Osm 2 GM/100 ML PLAST..BAG IV (00:49)
[2021-05-12] MEDS: Dextrose 50 % 25 GM/50 ML SYRINGE IVPUSH (00:49)
[2021-05-12] MEDS: Insulin Regular, Human 100 UNIT/ML 3 ML VIAL IVPUSH (00:50)
--- NOTE | 2021-05-12 01:15 | PC.NURSE ---
spoke with hospitalist about patients critical labs, new orders in may. attempting to find supplies for rectal medication. glucose taken and patient given d50 with insulin due to glucose. patient opening eyes and looking at nurse when name is called then returning to sleep. report given to narendra in overflow unit. transported with kori olivo and this rn
[2021-05-12] MEDS: Sodium Polystyrene Sulfon/Sorb 15 GM/60 ML ORAL.SUSP 30 GM PO (03:33)
--- NOTE | 2021-05-12 05:49 | MHC.PIE ---
Addendum entered by Mikel Victor RN 05/12/21 06:46: Full care given - multiple linen changes done for weeping and incontinence. Addendum entered by Mikel Victor RN 05/12/21 06:44: New order for TLC to be inserted. Labs only able to be drawn via finger stick. Original Note: Patient [facility] at approx 0140. Patient lethargic, arousable to tactile stimuli - attempting to nod head, tracks. Upon initial assessment - right lower leg skin tear noted - weeping serosang. Right foot more swollen than left. Bruising / discolored feet. Boggy right heel. IV right antecub infiltrated - insertion sites weeping as well. New #24g inserted left hand. Dr Manzanares made aware of IV issue - ok to put in foot - #22 inserted into left ankle -remains patent. Unable to take PO - Dr Manzanares ordered ME kayexalate - order initiated. Incont of large amt liquid stool. Very little urine output noted - Dr Manzanares made aware - fang ordered - inserted 16french. Total of 30ml cloudy urine put out since fang insertion. Dr Manzanares made aware. Patient noted to be hypothermic, core temp - 94.2 - Dr Manzanares made aware - Bear hugger ordered - put on patient - temp currently up to 95.7. Dr Manzanares aware of patient status - Plan to call sons about patient status and question plan for code status / plan of care.
[2021-05-12 06:30] LABS: MANUAL DIFF FLAG NO
[2021-05-12 06:38] LABS: Basophils Absolute Auto 0.1 X10*3/uL (0.0-0.2); Basophils Percent Auto 0.3 % (0-2); Hematocrit 49.3 % (37.0-47.0); Hemoglobin 14.4 g/dl (12.0-16.0); Imm Gran Abs Auto 0.24 X10*3/uL (0.00-0.03); Imm Gran Pct Auto 1.4 % (0.0-0.4); Lymphocytes Absolute Auto 1.1 X10*3/uL (1.2-4.9); Lymphocytes Percent Auto 6.2 % (20-40); Mean Corpuscular HGB Conc 29.2 g/dl (31.0-35.0); Mean Corpuscular Hemoglobin 31.2 pg (27.0-33.0); Mean Corpuscular Volume 106.7 fL (80.0-98.0); Monocytes Absolute Auto 1.2 X10*3/uL (0.1-1.2); Monocytes Percent Auto 6.9 % (2-11); NRBC Pct Auto 0.2 /100WBC (0.0-0.2); Neutrophils Absolute Auto 14.8 x10*3/uL (2.0-8.3); Neutrophils Percent Auto 85.2 % (45-73); Red Blood Count 4.62 X10*6/uL (4.20-5.50); White Blood Count 17.4 X10*3/uL (4.8-10.8)
[2021-05-12 06:48] LABS: Anion Gap 24 (12-20); Blood Urea Nitrogen 111 mg/dL (9-16); Calcium 11.1 mg/dL (8.4-10.2); Carbon Dioxide 17 mmol/L (22-29); Chloride 124 mmol/L (96-108); Creatinine Clr Calc Pharmacy 7.1; Estimated Glomerular Filt Rate 10; Glucose Random 118 mg/dL (60-115); Potassium 6.5 mmol/L (3.3-5.1); Sodium 158 mmol/L (135-145)
[2021-05-12 07:26] LABS: Platelet Count 119 X10*3/uL (160-400)
[2021-05-12] MEDS: Azithromycin 500 MG in 0.9 % Sodium Chloride 250 ML 125 MG IV (08:14)
[2021-05-12] MEDS: Dextrose 5 % 1,000 ML 100 ML IVCONT (08:15)
[2021-05-12] MEDS: Heparin Sodium,Porcine 5,000 UNIT/ML VIAL 5000 UNIT SUBCUT (08:15)
[2021-05-12 08:34] LABS: Phosphorus 5.6 mg/dL (2.7-4.5)
[2021-05-12 08:51] LABS: VBG Base Excess -7.6 mmol/L; VBG HCO3 18 mmol/L (22-26); VBG pCO2 39 mmHg; VBG pH 7.27 (7.32-7.43); VBG pO2 102 mmHg
[2021-05-12 08:55] LABS: Venous Blood Gas Refer to POC result
--- NOTE | 2021-05-12 09:02 | P.CONCC_ITS ---
History of Present Illness Data of Consult Service Date: 05/12/21 Requesting physician: Buddy Coyle Primary Care Provider: Geno Ramsay MD [facility] Reason for consult: level of care 86-year-old lady with underlying history dementia, hypothyroidism, hypertension, hyperlipidemia admitted on 05/11/2021 with lethargy. On ER evaluation patient noted to be hypothermic, hypernatremic, hyperkalemia, with acute kidney injury, significant while in depletion, and positive urinalysis. Patient has been started on IV fluid repletion and empiric antibiotics and admitted to [facility]. Overnight patient with improvement in her hyperkalemia, hypernatremia, and renal function. Blood/urine cultures are pending. Patient is normotensive and normoxemic on room air. Review of Systems Review of Systems: Yes Unobtainable due to mental condition and Unobtainable due to mental status PMFSH Social History Social History Advance Directives: No Advance Directives Information Provided: No Meds Allergies Allergy/AdvReac Type Severity Reaction Status Date / Time No Known Allergies Allergy Unverified 11/30/19 15:42 [No Known Allergies*] Active Medications: Current Medications Acetaminophen (Acetaminophen 325 Mg Tablet) 650 mg PO Q6H PRN PRN Reason: Pain, Mild (Pain Scale 1-3) Dextrose (Dextrose 50 % 25 Gm/50 Ml Syringe) 25 gm IVPUSH Q15M PRN; Protocol PRN Reason: per Hypoglycemia Standing Ord. Last Admin: 05/12/21 00:49 Dose: 25 gm Documented by: Docusate Sodium (Docusate Sodium 100 Mg Capsule) 100 mg PO DAILY PRN PRN Reason: Constipation Heparin Sodium (Porcine) (Heparin Sodium,Porcine 5,000 Unit/Ml Vial) 5,000 unit SUBCUT Q12H MRATITA Last Admin: 05/12/21 08:15 Dose: 5,000 unit Documented by: Ceftriaxone Sodium 1 gm/ (Sodium Chloride) 50 mls @ 100 mls/hr IV Q24H MARTITA Dextrose (D5w) 1,000 mls @ 100 mls/hr IVCONT .Q10H MARTITA Last Admin: 05/12/21 08:15 Dose: 100 mls/hr Documented by: Azithromycin 500 mg/ Sodium (Chloride) 250 mls @ 125 mls/hr IV Q24H [facility] Last Admin: 05/12/21 08:14 Dose: 125 mls/hr Documented by: Ondansetron HCl (Ondansetron Hcl 4 Mg/2 Ml Vial) 4 mg IVPUSH Q8H PRN PRN Reason: Nausea and Vomiting Pharmacy Consult (Consult Rx Perform Med Rec) 1 each MISCELLANE ONCE PRN PRN Reason: Consult order Sodium Chloride (0.9 % Sodium Chloride Flush 3 Ml Syringe) 3 ml IVFLUSH QSHIFT [facility] Last Admin: 05/12/21 08:15 Dose: Not Given Documented by: Home Medications Medication Instructions Recorded Confirmed Last Taken Type atorvastatin 20 mg tablet 1 tab PO BEDTIME 05/11/21 05/11/21 05/10/21 History donepezil 10 mg tablet 1 tab PO DAILY 05/11/21 05/11/21 05/10/21 History levothyroxine 50 mcg tablet 1 tab PO DAILY 05/11/21 05/11/21 05/10/21 History nifedipine 60 mg tablet,extended 1 tab PO DAILY 05/11/21 05/11/21 05/10/21 History release potassium chloride 20 mEq 1 tab PO BID 05/11/21 05/11/21 05/10/21 History tablet,extended release(part/cryst) (Klor-Con M) prednisone 5 mg tablet 1 tab PO DAILY 05/11/21 05/11/21 05/10/21 History Physical Exam Vital Signs: Vital Signs: Last Vital Signs Temp 96.6 F L 05/12/21 08:39 Pulse 72 05/12/21 08:39 Resp 31 H 05/12/21 08:39 BP 151/76 H 05/12/21 08:39 Pulse Ox 98 05/12/21 08:39 BMI result Body Mass Index 16.9 Const: General: no acute distress, awake and other ( does not answer questions, anasarca) Eyes: Sclerae: sclerae normal EOM: EOMs intact bilaterally Neck: Neck: Yes no lymphadenopathy, Yes trachea midline and Yes supple Resp: Effort & Inspection: normal respiratory effort and no respiratory distress Auscultation: clear to auscultation bilaterally Cardio: Rate: regular rate Rhythm: regular rhythm Heart sounds: no gallops, no murmurs and no rubs GI: Palpation (GI): Soft to palpation and Other GI palpation findings present ( Nontender) Auscultation: normal bowel sounds Extrem: General: No clubbing, No cyanosis and Yes pedal edema ( 1+ bilateral) Results Labs CBC & Chem 7: 05/12/21 06:26 05/12/21 06:26 Labs: Short CBC 05/11/21 05/12/21 Range/Units 16:17 06:26 WBC 21.5 H 17.4 H (4.8-10.8) X10*3/uL Hgb 16.0 14.4 (12.0-16.0) g/dl Hct 53.3 H 49.3 H (37.0-47.0) % Plt Count 185 D 119 L D (160-400) X10*3/uL BMP 05/11/21 05/11/21 05/11/21 17:30 19:58 23:38 Sodium 161 H* 159 H 163 H* Potassium 7.7 H* D 6.6 H* 6.7 H* Chloride 128 H 129 H 129 H Carbon Dioxide 15 L 15 L 16 L BUN 114 H D 110 H 113 H Creatinine 4.51 H* 4.35 H* 4.28 H* Calcium 10.3 H 9.7 10.1 05/12/21 06:26 Sodium 158 H Potassium 6.5 H* Chloride 124 H Carbon Dioxide 17 L BUN 111 H Creatinine 4.32 H* Calcium 11.1 H D Cardiac Enzymes 05/12/21 Range/Units 06:26 Total Creatine Kinase 319 H (26-140) U/L Liver Function 05/11/21 Range/Units 17:30 Total Bilirubin 0.6 (0.0-1.0) mg/dL Direct Bilirubin 0.3 (0.0-0.5) mg/dL AST 29 (5-31) U/L ALT 31 (0-31) U/L Alkaline Phosphatase 99 (39-117) U/L Albumin 3.6 (3.5-5.0) g/dL Urine 05/11/21 Range/Units 18:38 Urine Color BROWN A Urine Appearance TURBID Urine pH 8.0 (5.0-8.0) Ur Specific [place] 1.020 (1.005-1.025) Urine Protein 3+ H (NEG-TRACE) MG/DL Urine Glucose (UA) NEG (NEG) MG/DL Assessment and Plan (1) Adult failure to thrive: Status: Acute (2) Dehydration: Status: Acute (3) Acute kidney injury superimposed on CKD: Status: Acute (4) Acute hyperkalemia: Status: Acute (5) Acute hypernatremia: Status: Acute (6) Acute UTI: Status: Acute (7) Metabolic encephalopathy: Status: Acute Plan Impression: 86-year-old lady with underlying adult failure to thrive admitted worsening mental status changes likely secondary to underlying metabolic encephalopathy on the background of urinary tract infection. improving with empiric antibiotics and IV fluid support. Recommendation: Agree with current management. Consider checking phosp horous level. at this time patient does not require intensive care unit level of care, please notify for re-evaluation if patient's condition changes.
[2021-05-12 09:10] LABS: Troponin-I High Sensitivity 1140.1 ng/L (<3.5-17.0)
--- NOTE | 2021-05-12 09:10 | PC.NURSE ---
Skin/wound assessment completed today. Patient arms and legs edematous. Left arm has a skin tear and right arm has skin tear. Xeroform applied covered with gauze and roll gauze. Sacrum has Stage 1 pressure injury with some sacbbing. Triad applied covered with medium foam dressing. An incontinent wrap was placed between legs to catch incontinent loose stool. Patient has brusing to bilateral arms and legs. Patient is very ill looking with a temperature of 96.6. A bearhugger is being used.
--- NOTE | 2021-05-12 09:23 | MHC.CM.PN ---
CM CALLED PTS PCP OFFICE ([phone]) CM INFORMED THEY DO HAVE A HCP ON FILE COPY TO BE FAXED TO CM AWAITING FAX
--- NOTE | 2021-05-12 09:52 | MHC.CLN ---
RE: CONSULT RECOMMEND ADDING ENSURE BID TO INCREASE KCALS AND PROMOTE WOUND HEALING FULL NUTRITION ASSESSMENT TO FOLLOW
--- NOTE | 2021-05-12 10:20 | PC.NURSE ---
Pt is somnolent, will open eyes with light touch or saying her name. +PERRLA, 3mm pupils, equal, round and reactive at this time. NSR in the 70's on the monitor, pt is cool to touch, weeping throughout extremities, edema to all extremities as well. Unable to palpate pulses on all 4 extremities due to fluid overload. Pt skin extremely fragile, skin tear to L forarm, zeroform in place. Excoriation to buttocks, dressed by wound team. Beatriz hugger on patient, core temp rising slowly at this time, multiple bruising throughout body, specifically extremities at this time. Pt lung sounds diminished, shallow quick breaths at this time on 2L NC with good O2 sat. Abd soft, non tender, hypoactive bowel sounds with small amounts of inc stools, minimal dark yellow urine output. MD is aware, awaiting MD and family for family conference, pt DNR DNI at this time. Call clancy within reach. Will continue to monitor.
[2021-05-12 11:39] LABS: Alanine Aminotransferase 78 U/L (0-31); Alkaline Phosphatase 84 U/L (39-117); Aspartate Amino Transferase 89 U/L (5-31); Bilirubin Direct 0.2 mg/dL (0.0-0.5); Bilirubin Total 0.4 mg/dL (0.0-1.0); Total Protein 5.4 g/dL (6.5-8.0)
--- NOTE | 2021-05-12 12:05 | MHC.CM.PN ---
CM MET WITH PTS FAMILY PT LIVES AT HOME WITH HER SON, AIMEE PASCAL IS HER HCP, COPY OBTAINED FROM PCP OFFICE, NOW IN CHART FAMILY HAS AGREED TO HOSPICE [facility] AT BEDSIDE DC PLAN TBD SETTER MACHINE VS HOME WITH HOSPICE SERVICES PTS SON DOES NOT WANT HER TO GO TO A SNF IF AT ALL AVOIDABLE
[2021-05-12 12:08] LABS: Anion Gap 21 (12-20); Blood Urea Nitrogen 108 mg/dL (9-16); Calcium 10.4 mg/dL (8.4-10.2); Carbon Dioxide 18 mmol/L (22-29); Chloride 121 mmol/L (96-108); Creatinine Clr Calc Pharmacy 6.3; Estimated Glomerular Filt Rate 10; Glucose Random 71 mg/dL (60-115); Potassium 7.3 mmol/L (3.3-5.1); Sodium 153 mmol/L (135-145)
--- NOTE | 2021-05-12 12:47 | P.PNIM_ITS ---
Subjective Subjective Date of Service: 05/12/21 Interval History: Toxic metabolic encephalopathy, dehydration, failure to thrive, hyperkalemia, hyponatremia, SHIVA, UTI Review of Systems Patient barely wake Tachypneic Does not provide any information. Physical Exam Vital Signs: Vital Signs: Last Vital Signs Temp 98.2 F 05/12/21 12:44 Pulse 85 05/12/21 12:44 Resp 38 H 05/12/21 12:44 BP 126/60 05/12/21 12:44 Pulse Ox 99 05/12/21 12:44 BMI result Body Mass Index 16.9 Appearance: Awake.? cvs: rrr, [id number] , no murmur res: air air entry diminished at bases, few scattered rales abd: no rebound or guarding ,nt, bs present. ext pulses present , no cyanosis . neuro: Generalized weak, awake does not follow any commands neuro exam is limited due to that. Objective Data Active Medications Acetaminophen (Acetaminophen 325 Mg Tablet) 650 mg PO Q6H PRN PRN Reason: Pain, Mild (Pain Scale 1-3) Dextrose (Dextrose 50 % 25 Gm/50 Ml Syringe) 25 gm IVPUSH Q15M PRN; Protocol PRN Reason: per Hypoglycemia Standing Ord. Last Admin: 05/12/21 00:49 Dose: 25 gm Documented by: HEYDI Docusate Sodium (Docusate Sodium 100 Mg Capsule) 100 mg PO DAILY PRN PRN Reason: Constipation Heparin Sodium (Porcine) (Heparin Sodium,Porcine 5,000 Unit/Ml Vial) 5,000 unit SUBCUT Q12H [facility] Last Admin: 05/12/21 08:15 Dose: 5,000 unit Documented by: JENISE Ceftriaxone Sodium 1 gm/ (Sodium Chloride) 50 mls @ 100 mls/hr IV Q24H [facility] Dextrose (D5w) 1,000 mls @ 100 mls/hr IVCONT .Q10H [facility] Last Admin: 05/12/21 08:15 Dose: 100 mls/hr Documented by: JENISE Azithromycin 500 mg/ Sodium (Chloride) 250 mls @ 125 mls/hr IV Q24H [facility] Last Admin: 05/12/21 08:14 Dose: 125 mls/hr Documented by: JENISE Lorazepam (Lorazepam 2 Mg/Ml Vial) 0.25 mg IVPUSH Q6H PRN PRN Reason: Anxiety Morphine Sulfate (Morphine Sulfate 2 Mg/Ml Cartridge) 1 mg IVPUSH Q4H PRN; Protocol PRN Reason: Pain, Mild (Pain Scale 1-3) Ondansetron HCl (Ondansetron Hcl 4 Mg/2 Ml Vial) 4 mg IVPUSH Q8H PRN PRN Reason: Nausea and Vomiting Pharmacy Consult (Consult Rx Perform Med Rec) 1 each MISCELLANE ONCE PRN PRN Reason: Consult order Scopolamine (Scopolamine 1.5 Mg Patch.Td.3) 1.5 mg EAR-BEHIND Q72H [facility] Sodium Chloride (0.9 % Sodium Chloride Flush 3 Ml Syringe) 3 ml IVFLUSH QSHIFT [facility] Last Admin: 05/12/21 08:15 Dose: Not Given Documented by: JENISE Non-Admin Reason: IV Running Labs CBC & Chem 7: 05/12/21 06:26 05/12/21 10:33 Labs: Laboratory Results - last 24 hr 05/11/21 05/11/21 05/11/21 16:17 17:30 17:51 MCV 105.3 H MCH 31.6 MCHC 30.0 L RDW 16.5 H Plt Count 185 D MPV 12.0 Immature Gran % (Auto) 1.9 H Neut % (Auto) 88.0 H Lymph % (Auto) 4.[address] % (Auto) 5.5 Eos % (Auto) 0.0 Baso % (Auto) 0.4 Lymph # (Auto) 0.[address] # (Auto) 1.2 Eos # (Auto) 0.0 Baso # (Auto) 0.1 Abs Immat Gran (auto) 0.41 H Absolute Neuts (auto) 19.0 H Absolute Nucleated RBC 0.020 H Nucleated RBC % (auto) 0.1 PT INR VBG pH VBG pCO2 VBG pO2 VBG HCO3 VBG O2 Saturation VBG Base Excess Anion Gap 26 H Estim Creat Clear Calc 6.8 Estimated GFR 9 POC Glucose Random Glucose 122 H Lactic Acid Lactic Acid F/U @ 2Hr Calcium 10.3 H Phosphorus Magnesium 3.3 H Total Bilirubin 0.6 Direct Bilirubin 0.3 AST 29 ALT 31 Alkaline Phosphatase 99 Ammonia 32 Total Creatine Kinase B-Natriuretic Peptide Total Protein 6.3 L Albumin 3.6 Urine Color Urine Appearance Urine pH Ur Specific Marshall Urine Protein Urine Glucose (UA) Urine Ketones Urine Blood Urine Nitrite Ur Leukocyte Esterase Urine RBC Urine WBC Ur Squamous Epith Cells Urine Bacteria COVID-19 ([facility]RO) COVID-19 Clin Com Influenza Type A (PCR) Influenza Type B (PCR) RSV RNA Qual (PCR) SARS-CoV-2 RNA (RT-PCR) 05/11/21 05/11/21 05/11/21 17:51 17:51 17:52 MCV MCH MCHC RDW Plt Count MPV Immature Gran % (Auto) Neut % (Auto) Lymph % (Auto) [place] % (Auto) Eos % (Auto) Baso % (Auto) Lymph # (Auto) [place] # (Auto) Eos # (Auto) Baso # (Auto) Abs Immat Gran (auto) Absolute Neuts (auto) Absolute Nucleated RBC Nucleated RBC % (auto) PT INR VBG pH VBG pCO2 VBG pO2 VBG HCO3 VBG O2 Saturation VBG Base Excess Anion Gap Estim Creat Clear Calc Estimated GFR POC Glucose Random Glucose Lactic Acid 3.8 H* Lactic Acid F/U @ 2Hr Calcium Phosphorus Magnesium Total Bilirubin Direct Bilirubin AST ALT Alkaline Phosphatase Ammonia Total Creatine Kinase B-Natriuretic Peptide Total Protein Albumin Urine Color Urine Appearance Urine pH Ur Specific Marshall Urine Protein Urine Glucose (UA) Urine Ketones Urine Blood Urine Nitrite Ur Leukocyte Esterase Urine RBC Urine WBC Ur Squamous Epith Cells Urine Bacteria COVID-19 ([facility]RO) Negative COVID-19 Clin Com See Note Influenza Type A (PCR) NEGATIVE Influenza Type B (PCR) NEGATIVE RSV RNA Qual (PCR) NEGATIVE SARS-CoV-2 RNA (RT-PCR) NEGATIVE 05/11/21 05/11/21 05/11/21 18:15 18:38 18:39 MCV MCH MCHC RDW Plt Count MPV Immature Gran % (Auto) Neut % (Auto) Lymph % (Auto) [place] % (Auto) Eos % (Auto) Baso % (Auto) Lymph # (Auto) [place] # (Auto) Eos # (Auto) Baso # (Auto) Abs Immat Gran (auto) Absolute Neuts (auto) Absolute Nucleated RBC Nucleated RBC % (auto) PT 11.3 INR 1.0 VBG pH VBG pCO2 VBG pO2 VBG HCO3 VBG O2 Saturation VBG Base Excess Anion Gap Estim Creat Clear Calc Estimated GFR POC Glucose Random Glucose Lactic Acid Lactic Acid F/U @ 2Hr Calcium Phosphorus Magnesium Total Bilirubin Direct Bilirubin AST ALT Alkaline Phosphatase Ammonia Total Creatine Kinase B-Natriuretic Peptide 88 Total Protein Albumin Urine Color BROWN A Urine Appearance TURBID Urine pH 8.0 Ur Specific Marshall 1.020 Urine Protein 3+ H Urine Glucose (UA) NEG Urine Ketones 5 Urine Blood 3+ H Urine Nitrite NEG Ur Leukocyte Esterase 3+ H Urine RBC 30-49 H Urine WBC TNTC H Ur Squamous Epith Cells NONE Urine Bacteria 4+ COVID-19 ([facility]RO) COVID-19 Clin Com Influenza Type A (PCR) Influenza Type B (PCR) RSV RNA Qual (PCR) SARS-CoV-2 RNA (RT-PCR) 05/11/21 05/11/21 05/11/21 19:49 19:58 20:04 MCV MCH MCHC RDW Plt Count MPV Immature Gran % (Auto) Neut % (Auto) Lymph % (Auto) [place] % (Auto) Eos % (Auto) Baso % (Auto) Lymph # (Auto) [place] # (Auto) Eos # (Auto) Baso # (Auto) Abs Immat Gran (auto) Absolute Neuts (auto) Absolute Nucleated RBC Nucleated RBC % (auto) PT INR VBG pH VBG pCO2 VBG pO2 VBG HCO3 VBG O2 Saturation VBG Base Excess Anion Gap 22 H Estim Creat Clear Calc 7.1 Estimated GFR 10 POC Glucose 194 H Random Glucose 232 H Lactic Acid Lactic Acid F/U @ 2Hr 3.8 H* Calcium 9.7 Phosphorus Magnesium Total Bilirubin Direct Bilirubin AST ALT Alkaline Phosphatase Ammonia Total Creatine Kinase B-Natriuretic Peptide Total Protein Albumin Urine Color Urine Appearance Urine pH Ur Specific Marshall Urine Protein Urine Glucose (UA) Urine Ketones Urine Blood Urine Nitrite Ur Leukocyte Esterase Urine RBC Urine WBC Ur Squamous Epith Cells Urine Bacteria COVID-19 ([facility]) COVID-19 Clin Com Influenza Type A (PCR) Influenza Type B (PCR) RSV RNA Qual (PCR) SARS-CoV-2 RNA (RT-PCR) 05/11/21 05/11/21 05/12/21 22:25 23:38 00:39 MCV MCH MCHC RDW Plt Count MPV Immature Gran % (Auto) Neut % (Auto) Lymph % (Auto) [place] % (Auto) Eos % (Auto) Baso % (Auto) Lymph # (Auto) [place] # (Auto) Eos # (Auto) Baso # (Auto) Abs Immat Gran (auto) Absolute Neuts (auto) Absolute Nucleated RBC Nucleated RBC % (auto) PT INR VBG pH VBG pCO2 VBG pO2 VBG HCO3 VBG O2 Saturation VBG Base Excess Anion Gap 25 H Estim Creat Clear Calc 7.1 Estimated GFR 10 POC Glucose 220 H 96 Random Glucose 125 H Lactic Acid Lactic Acid F/U @ 2Hr Calcium 10.1 Phosphorus Magnesium Total Bilirubin Direct Bilirubin AST ALT Alkaline Phosphatase Ammonia Total Creatine Kinase B-Natriuretic Peptide Total Protein Albumin Urine Color Urine Appearance Urine pH Ur Specific Marshall Urine Protein Urine Glucose (UA) Urine Ketones Urine Blood Urine Nitrite Ur Leukocyte Esterase Urine RBC Urine WBC Ur Squamous Epith Cells Urine Bacteria COVID-19 ([facility]) COVID-19 Clin Com Influenza Type A (PCR) Influenza Type B (PCR) RSV RNA Qual (PCR) SARS-CoV-2 RNA (RT-PCR) 05/12/21 05/12/21 05/12/21 06:26 06:26 08:38 MCV 106.7 H MCH 31.2 MCHC 29.2 L RDW 16.0 Plt Count 119 L D MPV Not Reportable Immature Gran % (Auto) 1.4 H Neut % (Auto) 85.2 H Lymph % (Auto) 6.[address] % (Auto) 6.9 Eos % (Auto) 0.0 Baso % (Auto) 0.3 Lymph # (Auto) 1.[address] [place] # (Auto) 1.2 Eos # (Auto) 0.0 Baso # (Auto) 0.1 Abs Immat Gran (auto) 0.24 H Absolute Neuts (auto) 14.8 H Absolute Nucleated RBC 0.030 H Nucleated RBC % (auto) 0.2 PT INR VBG pH 7.27 L VBG pCO2 39 VBG pO2 102 VBG HCO3 18 L VBG O2 Saturation TNP VBG Base Excess -7.6 Anion Gap 24 H Estim Creat Clear Calc 7.1 Estimated GFR 10 POC Glucose Random Glucose 118 H Lactic Acid Lactic Acid F/U @ 2Hr Calcium 11.1 H D Phosphorus 5.6 H Magnesium Total Bilirubin 0.4 Direct Bilirubin 0.2 AST 89 H ALT 78 H Alkaline Phosphatase 84 Ammonia Total Creatine Kinase 319 H B-Natriuretic Peptide Total Protein 5.4 L Albumin 3.0 L Urine Color Urine Appearance Urine pH Ur Specific Marshall Urine Protein Urine Glucose (UA) Urine Ketones Urine Blood Urine Nitrite Ur Leukocyte Esterase Urine RBC Urine WBC Ur Squamous Epith Cells Urine Bacteria COVID-19 ([facility]) COVID-19 Clin Com Influenza Type A (PCR) Influenza Type B (PCR) RSV RNA Qual (PCR) SARS-CoV-2 RNA (RT-PCR) 05/12/21 05/12/21 08:47 10:33 MCV MCH MCHC RDW Plt Count MPV Immature Gran % (Auto) Neut % (Auto) Lymph % (Auto) [place] % (Auto) Eos % (Auto) Baso % (Auto) Lymph # (Auto) [place] # (Auto) Eos # (Auto) Baso # (Auto) Abs Immat Gran (auto) Absolute Neuts (auto) Absolute Nucleated RBC Nucleated RBC % (auto) PT INR VBG pH Cancelled VBG pCO2 Cancelled VBG pO2 Cancelled VBG HCO3 Cancelled VBG O2 Saturation Cancelled VBG Base Excess Cancelled Anion Gap 21 H Estim Creat Clear Calc 6.3 Estimated GFR 10 POC Glucose Random Glucose 71 Lactic Acid Lactic Acid F/U @ 2Hr Calcium 10.4 H D Phosphorus Magnesium Total Bilirubin Direct Bilirubin AST ALT Alkaline Phosphatase Ammonia Total Creatine Kinase B-Natriuretic Peptide Total Protein Albumin Urine Color Urine Appearance Urine pH Ur Specific Marshall Urine Protein Urine Glucose (UA) Urine Ketones Urine Blood Urine Nitrite Ur Leukocyte Esterase Urine RBC Urine WBC Ur Squamous Epith Cells Urine Bacteria COVID-19 ([facility]) COVID-19 Clin Com Influenza Type A (PCR) Influenza Type B (PCR) RSV RNA Qual (PCR) SARS-CoV-2 RNA (RT-PCR) Microbiology Microbiology Results: Microbiology 05/11/21 18:55 Urine Culture - Preliminary Urine clean catch - Clean Catch Midstream Culture in progress. Assessment and Plan (1) Metabolic encephalopathy: Status: Acute (2) Adult failure to thrive: Status: Acute (3) Dehydration: Status: Acute (4) Acute UTI: Status: Acute Plan 86-year-old female with advanced dementia and multiple comorbidities-including COPD, dementia, hypertension, CKD, hyperlipidemia, hypothyroidism-came with failure to thrive since -progressively declining, came with toxic metabolic encephalopathy- SHIVA, hyponatremia, hyperkalemia, UTI,elevated troponin. Patient was treated with IV hydration, Lokelma, Kayexalate, IV antibiotics: Patient had minimal response, above management discussed with the family in detail length : With both sons Mr. Kory guerrero , Aki guerrero and daughter, grand daughter present -decided for comfort measures. Comfort meds ordered including morphine, Ativan, p.r.n. nebs. broom worker aware for hospice . ? Quality Stroke Does the patient have a stroke diagnosis?: No VTE Prior VTE?: No VTE Risk Level:: Medical - moderate - high VTE Device Contraindication: Treatment Not Indicated VTE Drug Contraindication: N/A - Med Ordered
[2021-05-12] MEDS: LORazepam 2 MG/ML VIAL 0.25 MG IVPUSH (13:02)
[2021-05-12] MEDS: Morphine Sulfate 2 MG/ML CARTRIDGE 1 MG IVPUSH (13:04)
[2021-05-12] MEDS: Scopolamine 1.5 MG PATCH.TD.3 EAR-BEHIND (13:11)
[2021-05-12] MEDS: Dextrose 5 % 1,000 ML 60 ML IVCONT (22:36)
[2021-05-12 23:37] LABS: Anion Gap 20 (12-20); Blood Urea Nitrogen 115 mg/dL (9-16); Calcium 8.9 mg/dL (8.4-10.2); Carbon Dioxide 13 mmol/L (22-29); Chloride 118 mmol/L (96-108); Creatinine Clr Calc Pharmacy 5.8; Estimated Glomerular Filt Rate 9; Glucose Random 90 mg/dL (60-115); Potassium 7.3 mmol/L (3.3-5.1); Sodium 144 mmol/L (135-145)
[2021-05-13 07:36] VITALS: BP 124/56; PULSE 83; RESP 20; TEMP 36.1; O2SAT 95
[2021-05-13] MEDS: 0.9 % Sodium Chloride Flush 3 ML SYRINGE IVFLUSH ×2 (07:45→15:10)
--- NOTE | 2021-05-13 08:29 | P.CDIC_ITS ---
CDI Concurrent Query Documentation Clarification: PHYSICIAN'S DOCUMENTATION REQUEST Date of Query: 05/13/21 0829 Patient Name: Prabha Moser Admit Date: 05/11/21 Dear Doctor, A review of the medical record indicates additional documentation may be needed. Please review below and update the documentation accordingly. Clinical Indicators: Height: [] 5'3 Weight: [] 43.5 BMI: [] 17.0 Other Clinical Notes Supporting Significance of the BMI: Risk Factors/Clinical Indicators/Treatments Per H&P: dehydrated, FTT Per Nutrition note 05/12/21: recommend Ensure BID to increase calories and promote wound healing If possible, please provide an associated diagnosis related to the abnormal BMI, such as: For a BMI <= 19: * Underweight * Weight loss * Cachexia * Anorexia Or: * BMI is not significant * Other (please specify) * Unable to determine Use of terms such as suspected, likely, concern for, or probable (associated with a specific diagnosis that is being evaluated, monitored, or treated as if it exists) are acceptable and can be coded in the inpatient setting, when documented at the time of discharge. Thank you, Lore Ferrell RN Extension: [phone] Please use your independent medical judgment in providing your response. THIS QUERY IS PART OF THE PERMANENT MEDICAL RECORD Provider Response: Other Other Diagnosis: severe malnutrition / FTT.
--- NOTE | 2021-05-13 08:36 | P.CDIC_ITS ---
CDI Concurrent Query Documentation Clarification: PHYSICIAN'S DOCUMENTATION REQUEST Date of Query: 05/13/21 0836 Patient Name: Prabha Moser Admit Date: 05/11/21 Dear Doctor, A review of the medical record indicates additional documentation may be indicated. Please review below and update the documentation accordingly. Clinical Indicators: Risk Factors/Clinical Indicators/Treatments per wound consult 05/12/21: stage 1 press sacrum-Triad red, scabby, non-blanchable skin Based on the above, could you please provide, in the Progress Notes, further information regarding the ulcer/wound: * Type (etiology) of ulcer/wound: * Pressure (decubitus) ulcer * Traumatic wound * Other * Unable to determine * For a non-pressure ulcer, please indicate the depth/severity: * Limited to the breakdown of skin * With fat layer exposed * With necrosis of muscle * With necrosis of bone * Other * Unable to determine * If a pressure ulcer, please also include the stage* of the ulcer: * Stage 1 - Skin intact, non-blanchable redness * Stage 2 - Partial thickness loss of dermis, includes intact or open blister * Stage 3 - Full thickness tissue not including bone, tendon, or muscle * Stage 4 - Full thickness tissue loss, including exposed bones, tendon, or muscle * Unstageable - Full thickness tissue loss in which the base of the ulcer is covered by slough (yellow, carcamo, styles, green or brown) and/or eschar (carcamo, brown, or black) in the wound bed. * Suspected deep tissue injury - Purple or maroon localized area of discolored intact skin or blood-filled blister due to damage of underlying soft tissues from pressure and/or shear. The area may be preceded by tissue that is painful, firm, mushy, boggy, warmer, or cooler as compare to adjacent tissue. * Unable to determine *Source: National Pressure Ulcer Advisory Panel (NPUAP) Use of terms such as suspected, likely, concern for, or probable (associated with a specific diagnosis that is being evaluated, monitored, or treated as if it exists) are acceptable and can be coded in the inpatient setting, when documented at the time of discharge. Thank you, Lore Ferrell RN Extension: [phone] Please use your independent medical judgment in providing your response. THIS QUERY IS PART OF THE PERMANENT MEDICAL RECORD Provider Response: Other Other Diagnosis: stage 1 scarum
--- NOTE | 2021-05-13 08:36 | MHC.CDI.CONC ---
CDI Concurrent Query Documentation Clarification: PHYSICIAN'S DOCUMENTATION REQUEST Date of Query: 05/13/21 0836 Patient Name: Prabha Moser Admit Date: 05/11/21 Dear Doctor, A review of the medical record indicates additional documentation may be indicated. Please review below and update the documentation accordingly. Clinical Indicators: Risk Factors/Clinical Indicators/Treatments per wound consult 05/12/21: stage 1 press sacrum-Triad red, scabby, non-blanchable skin Based on the above, could you please provide, in the Progress Notes, further information regarding the ulcer/wound: Type (etiology) of ulcer/wound: Pressure (decubitus) ulcer Traumatic wound Other Unable to determine For a non-pressure ulcer, please indicate the depth/severity: Limited to the breakdown of skin With fat layer exposed With necrosis of muscle With necrosis of bone Other Unable to determine If a pressure ulcer, please also include the stage* of the ulcer: Stage 1 - Skin intact, non-blanchable redness Stage 2 - Partial thickness loss of dermis, includes intact or open blister Stage 3 - Full thickness tissue not including bone, tendon, or muscle Stage 4 - Full thickness tissue loss, including exposed bones, tendon, or muscle Unstageable - Full thickness tissue loss in which the base of the ulcer is covered by slough (yellow, carcamo, styles, green or brown) and/or eschar (carcamo, brown, or black) in the wound bed. Suspected deep tissue injury - Purple or maroon localized area of discolored intact skin or blood-filled blister due to damage of underlying soft tissues from pressure and/or shear. The area may be preceded by tissue that is painful, firm, mushy, boggy, warmer, or cooler as compare to adjacent tissue. Unable to determine *Source: National Pressure Ulcer Advisory Panel (NPUAP) Use of terms such as suspected, likely, concern for, or probable (associated with a specific diagnosis that is being evaluated, monitored, or treated as if it exists) are acceptable and can be coded in the inpatient setting, when documented at the time of discharge. Thank you, Lore Ferrell RN Extension: [phone] Please use your independent medical judgment in providing your response. THIS QUERY IS PART OF THE PERMANENT MEDICAL RECORD Provider Response: Other Other Diagnosis: stage 1 scarum
--- NOTE | 2021-05-13 09:56 | CONS_ITS ---
DATE OF SERVICE: 05/12/2021 REASON FOR CONSULTATION: I was called to see this patient to assist in the management of acute renal failure. HISTORY OF PRESENT ILLNESS: To summarize, Prabha is an 86-year-old woman with multiple medical problems, who came in and was brought in by her son because of dehydration. She was lethargic, history of decreased p.o. intake. At the time of admission, she was found to have a BUN of 114, creatinine of 4.48 with a potassium of 7.7. Baseline renal function is unknown; however, back in February, the serum creatinine was 1.86 with EGFR of 26 mL/min. Since admission, she has been treated medically for hyperkalemia. She has been evaluated by ICU. This consultation is requested for management of acute kidney injury and hyperkalemia. PAST MEDICAL HISTORY: Ongoing medical problems were reviewed from the chart. Patient is unable to give any history. Ongoing problems include chronic kidney disease. MEDICATIONS: At the time of admission include prednisone, potassium chloride, nifedipine, levothyroxine, , and atorvastatin. PHYSICAL EXAMINATION: GENERAL: Prabha is an elderly woman. HEENT: She is healed. Mucosa is dry, not verbalizing. NECK: Supple. She is cachectic. LUNGS: With rhonchi. HEART: No gallop. ABDOMEN: Soft, nontender. EXTREMITIES: No edema. VITAL SIGNS: Blood pressure , pulse 78. Temperature 97.0. LABORATORY DATA: Sodium 148, potassium 6.3, CO2 of 17, BUN 111, creatinine 4.32, calcium 11.1. Troponin . Hemoglobin 14.4. On admission, hemoglobin was 16.0. IMPRESSION: 86-year-old woman with severe dehydration, acute kidney injury with hyperkalemia, metabolic acidosis, and hypercalcemia. Hypernatremia due to severe free water deficit. RECOMMENDATIONS: My recommendation will be to treat her with D5W at 100 cc/hr and gradually lower the serum sodium at a rate of 0.5 mmol/L/hr. Goal is not to exceed the correction of more than 8-10 mmol in a 24-hour period. Severe hyperkalemia in the setting of UTI and metabolic acidosis. She was receiving potassium supplementation. I would administer Lokelma if she is able to take orally. If not, we can administer Kayexalate 30 g rectal enema. If she fails to respond to measures, she may need emergency dialysis; however, the family is meeting at 11 o'clock to decide on further management. If she needs dialysis, she needs to be transferred to ICU for further management. I have discussed with the team and we will follow her along with the team. Venkata Cochran MD BPA/MODL / [id number]
--- NOTE | 2021-05-13 11:12 | PM.DS ---
DS: Providers Provider Date of Service: 05/13/21 Date of admission: 05/11/21 20:54 Primary care physician: Geno Ramsay MD Consults: 05/12/21 07:02 Consult to Infectious Diseases Routine Consulting Provider: Charla Diamond Reason for consultation: uti Has provider been notified: No Consult to Nephrology Routine Consulting Provider: Venkata Cochran Reason for consultation: shiva , hyperkalemia Has provider been notified: No 05/12/21 07:07 Consult to Critical Care Routine Consulting Provider: Pancho Blackmon Reason for consultation: hypothermia , shiva, hypernatremia-level of care Has provider been notified: No DS: Diagnosis Discharge Diagnosis (1) Metabolic encephalopathy: Status: Acute (2) Adult failure to thrive: Status: Acute (3) Dehydration: Status: Acute (4) Acute UTI: Status: Acute DS: Summary Status at Discharge Cognitive/behavioral status at discharge: 86-year-old female? with unknown past medical history was brought into the hospital? by her son with reports of decreased intake and increased? lethargy.? Patient is awake, alert, but does not respond to any of the questions.? Apparently she lives at home with her son, has not been eating or drinking for few days.? Usually able to respond with 1 word answers according to her son but has been declining.? She usually ambulates with her walker but has now become nonambulatory.? I tried to reach her son's using the numbers on file 1 of them is a fax and the other 1 is a wrong number. ?I am unable to complete review of system is patient is not responding verbally.? She is able to track with her eyes but does not answer. ? On arrival to the ED patient has a temp of 96 degrees, respiratory rate of 37, heart rate of 77, satting 85% on room air. ?labs are significant for WBC count of 21.5, sodium of 161, potassium of 7.7, chloride of 128, BUN of 114, creatinine of 4.5 with a baseline around 1.6-1.8, lactic acid of 3.8, troponin of 950.5, urine positive for leukocyte Estrace and WBC.? COVID-19 negative Chest x-ray negative ?CT of the head shows moderate volume loss and small-vessel ischemic changes of the supratentorial white matter.? 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 Above management discussed with the patient in detail length with her son Mr Prabhakar in detail- understand and in agreement with the above plan, time spent 50 minutes and 50% time spent on counseling. Significant findings: As above. Procedures performed: None. Treatment and response: As above. Complications: None. Time Spent with Patient Time attestation: Total time spent providing and/or coordinating discharge services: Discharge coordination time: Greater than 30 minutes Quality: Stroke Does the patient have a stroke diagnosis?: No Physical Exam Vital Signs: Vital Signs: Last Vital Signs Temp 97 F 05/13/21 07:36 Pulse 83 05/13/21 07:36 Resp 20 05/13/21 07:36 BP 124/56 L 05/13/21 07:36 Pulse Ox 95 05/13/21 07:36 BMI result Body Mass Index 16.9 Appearance:? nonresponsive cvs: rrr, [id number] , no murmur res: air air entry diminished at bases, few scattered rales abd: no rebound or guarding ,nt, bs present. ext pulses present , no cyanosis . neuro:? does not follow any commands neuro exam is limited due to that DS: Data Data Completed and Pending Labs on day of discharge: Laboratory Results - last 24 hr 05/12/21 05/12/21 05/12/21 06:26 10:33 23:10 Sodium 153 H 144 Potassium 7.3 H* 7.3 H* Chloride 121 H 118 H Carbon Dioxide 18 L 13 L Anion Gap 21 H 20 BUN 108 H 115 H Creatinine 4.37 H* 4.73 H* Estim Creat Clear Calc 6.3 5.8 Estimated GFR 10 9 Random Glucose 71 90 Calcium 10.4 H D 8.9 D Total Bilirubin 0.4 Direct Bilirubin 0.2 AST 89 H ALT 78 H Alkaline Phosphatase 84 Total Protein 5.4 L Albumin 3.0 L Preliminary micro results at discharge 05/11/21 17:51 Blood Culture - Preliminary Blood - Venous No growth after 24 hours. 05/11/21 17:30 Blood Culture - Preliminary Blood - Venous No growth after 24 hours. 05/11/21 18:55 Urine Culture - Preliminary Urine clean catch - Clean Catch Midstream Culture in progress. Additional Comments Additional comments: CT/CT head/brain wo con IMPRESSION: *? Moderate volume loss and small vessel ischemic changes of the supratentorial white matter. *? 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 *? No intracranial hemorrhage or other acute intracranial pathology. Discharge Plan Discharge Patient Disposition: Hospice - Home Discharge Diagnosis: FTT, toxic metabolic encephalopathy, Shiva on CKD, multiple electrolytic abnormalities, UTI Referrals: Geno Ramsay MD [Primary Care Provider] - 1 Week Discharge Medications: New morphine concentrate 100 mg/5 mL (20 mg/mL) solution 10 mg PO Q6H PRN (Reason: pain) Qty: 118 0RF lorazepam 2 mg/mL concentrate 0.25 mg PO BID PRN (Reason: agitation) Qty: 30 0RF scopolamine base [Transderm-Scop] 1 mg over 3 days Patch 3 Day 1.5 mg EAR-BEHIND Q72H Qty: 4 0RF Discontinued atorvastatin 20 mg tablet 1 tab PO BEDTIME 0RF donepezil 10 mg tablet 1 tab PO DAILY 0RF prednisone 5 mg tablet 1 tab PO DAILY 0RF potassium chloride [Klor-Con M20] 20 mEq tablet,ER particles/crystals 1 tab PO BID 0RF levothyroxine 50 mcg tablet 1 tab PO DAILY 0RF nifedipine 60 mg tablet extended release 1 tab PO DAILY 0RF Diet: advance to usual diet Activity on Discharge: As tolerated Stand Alone Forms: Patient Portal Discharge page Care Plan Goals: Patient was admitted for toxic metabolic encephalopathy, failure to thrive, multiple electrolytic abnormalities, SHIVA on CKD, uti also has advanced dementia: Family decided yesterday for comfort measures, going home with comfort meds. Health Concerns: As above. Plan of Treatment: As above. Assessment: As above. For
[2021-05-13 12:12] VITALS: BMI 18.7
--- NOTE | 2021-05-13 12:58 | HO.PM.IMPN ---
Subjective Subjective Date of Service: 05/13/21 Interval History: Toxic metabolic? encephalopathy, dehydration, failure to thrive, hyperkalemia, hyponatremia, SHIVA, UTI Review of Systems nonverble , not awake Physical Exam Vital Signs: Vital Signs: Last Vital Signs Temp 97 F 05/13/21 07:36 Pulse 83 05/13/21 07:36 Resp 20 05/13/21 07:36 BP 124/56 L 05/13/21 07:36 Pulse Ox 95 05/13/21 07:36 BMI result Body Mass Index 18.7 Appearance:? nonresponsive cvs: rrr, [id number] , no murmur res: air air entry diminished at bases, few scattered rales abd: no rebound or guarding ,nt, bs present. ext pulses present , no cyanosis . neuro:? does not follow any commands neuro exam is limited due to that Objective Data Active Medications Acetaminophen (Acetaminophen 325 Mg Tablet) 650 mg PO Q6H PRN PRN Reason: Pain, Mild (Pain Scale 1-3) Albuterol/Ipratropium (Albuterol/Iprat 2.5/0.5mg 3 Ml Ampul.Neb) 3 ml INHALE Q3H PRN PRN Reason: sob Dextrose (Dextrose 50 % 25 Gm/50 Ml Syringe) 25 gm IVPUSH Q15M PRN; Protocol PRN Reason: per Hypoglycemia Standing Ord. Last Admin: 05/12/21 00:49 Dose: 25 gm Documented by: HEYDI Docusate Sodium (Docusate Sodium 100 Mg Capsule) 100 mg PO DAILY PRN PRN Reason: Constipation Lorazepam (Lorazepam 2 Mg/Ml Vial) 0.25 mg IVPUSH Q6H PRN PRN Reason: Anxiety Last Admin: 05/12/21 13:02 Dose: 0.25 mg Documented by: ZAMZAM-RAMJEANETTE Morphine Sulfate (Morphine Sulfate 2 Mg/Ml Cartridge) 1 mg IVPUSH Q4H PRN; Protocol PRN Reason: Pain, Mild (Pain Scale 1-3) Last Admin: 05/12/21 13:04 Dose: 1 mg Documented by: ZAMZAM-RAMSK Ondansetron HCl (Ondansetron Hcl 4 Mg/2 Ml Vial) 4 mg IVPUSH Q8H PRN PRN Reason: Nausea and Vomiting Pharmacy Consult (Consult Rx Perform Med Rec) 1 each MISCELLANE ONCE PRN PRN Reason: Consult order Scopolamine (Scopolamine 1.5 Mg Patch.Td.3) 1.5 mg EAR-BEHIND Q72H [facility] Last Admin: 05/12/21 13:11 Dose: 1.5 mg Documented by: JENISE Sodium Chloride (0.9 % Sodium Chloride Flush 3 Ml Syringe) 3 ml IVFLUSH QSHIFT [facility] Last Admin: 05/13/21 07:45 Dose: 3 ml Documented by: LAURA Labs CBC & Chem 7: 05/12/21 06:26 05/12/21 23:10 Labs: Laboratory Results - last 24 hr 05/12/21 23:10 Anion Gap 20 Estim Creat Clear Calc 5.8 Estimated GFR 9 Random Glucose 90 Calcium 8.9 D Microbiology Microbiology Results: Microbiology 05/11/21 18:55 Urine Culture - Final Urine clean catch - Clean Catch Midstream 05/11/21 17:51 Blood Culture - Preliminary Blood - Venous No growth after 24 hours. 05/11/21 17:30 Blood Culture - Preliminary Blood - Venous No growth after 24 hours. Assessment and Plan (1) Metabolic encephalopathy: Status: Acute (2) Adult failure to thrive: Status: Acute (3) Acute UTI: Status: Acute (4) Acute hyperkalemia: Status: Acute Plan Patient was admitted for toxic metabolic encephalopathy, failure to thrive,moderate malnutrition, multiple electrolytic abnormalities, SHIVA on CKD, uti, elevated troponins,also has advanced dementia: Patient was treated with IV hydration, Lokelma, Kayexalate, IV antibiotics:? Patient had minimal response, above management discussed with the family in detail length : With both sons Mr. Kory guerrero , Aki guerrero and daughter, grand daughter present -decided for comfort measures Quality Stroke Does the patient have a stroke diagnosis?: No VTE Prior VTE?: No VTE Risk Level:: Medical - moderate - high VTE Device Contraindication: Treatment Not Indicated VTE Drug Contraindication: N/A - Med Ordered
--- NOTE | 2021-05-13 15:43 | MHC.CM.PN ---
NURSE LUDIN SEISMOGRAPH COMPUTER NTOE MET WITH HOSPITLSIST AND HE REOOOO=PORTED PATIENT WOULD BE HER E AND STAY APPLIED TECHNOLOGIST TODAY THIS WAS REPORTED THO THE [facility] THEY PUT A STOP ON THE DELIVERY OF EQUIPEMENT , LATER HOSPITLAIST REPORTED THAT SHE COULD BE DISCHARGED HOME WITH HOSPICE M, I CALLED TO [facility] SPOKE WITH CARO AND SHE SAID THE WEQUIPEMENT WOULD NOT BE ABLE TO BE DELIVERED UNTI AROUND 4PM AND THAT HOSPCIE NURSED STOP AT 4;30 FOR ADMISSION , AND WITH THE DELAYS FOR AMBULANCE TRANSFERNS THEY WOULDNOT BE ABLE TO SE HER . FAMILY WANTS THE HOSPICE NURSE TO BE OUT THE DAY OF [place] , I SPOKE WITH THE SON GWYN AND OTHER FAMIYL MEMBERS THEY ARE AWARE THAT PATIENT WILL BE DISCHARGE IN THE MORING TOMORROW 05/14
[2021-05-13 16:00] VITALS: RESP 22; O2SAT 91
[2021-05-13] MEDS: Morphine Sulfate 2 MG/ML CARTRIDGE 1 MG IVPUSH (19:28)
[2021-05-13 23:40] VITALS: BP 100/49; PULSE 79; RESP 14; TEMP 36.6; O2SAT 92
[2021-05-14] MEDS: 0.9 % Sodium Chloride Flush 3 ML SYRINGE IVFLUSH ×2 (00:43→07:15)
--- NOTE | 2021-05-14 11:34 | PM.DS ---
DS: Providers Provider Date of Service: 05/14/21 Date of admission: 05/11/21 20:54 Primary care physician: Geno Ramsay MD Consults: 05/12/21 07:02 Consult to Infectious Diseases Routine Consulting Provider: Charla Diamond Reason for consultation: uti Has provider been notified: No Consult to Nephrology Routine Consulting Provider: Venkata Cochran Reason for consultation: shiva , hyperkalemia Has provider been notified: No 05/12/21 07:07 Consult to Critical Care Routine Consulting Provider: Pancho Blackmon Reason for consultation: hypothermia , shiva, hypernatremia-level of care Has provider been notified: No DS: Diagnosis Discharge Diagnosis (1) Metabolic encephalopathy: Status: Acute (2) Adult failure to thrive: Status: Acute (3) Acute UTI: Status: Acute (4) Acute hyperkalemia: Status: Acute DS: Summary Hospital Course Hospital Course: Cognitive/behavioral status at discharge: 86-year-old female? with unknown past medical history was brought into the hospital? by her son with reports of decreased intake and increased? lethargy.? Patient is awake, alert, but does not respond to any of the questions.? Apparently she lives at home with her son, has not been eating or drinking for few days.? Usually able to respond with 1 word answers according to her son but has been declining.? She usually ambulates with her walker but has now become nonambulatory.? I tried to reach her son's using the numbers on file 1 of them is a fax and the other 1 is a wrong number. ?I am unable to complete review of system is patient is not responding verbally.? She is able to track with her eyes but does not answer. ? On arrival to the ED patient has a temp of 96 degrees, respiratory rate of 37, heart rate of 77, satting 85% on room air. ?labs are significant for WBC count of 21.5, sodium of 161, potassium of 7.7, chloride of 128, BUN of 114, creatinine of 4.5 with a baseline around 1.6-1.8, lactic acid of 3.8, troponin of 950.5, urine positive for leukocyte Estrace and WBC.? COVID-19 negative Chest x-ray negative ?CT of the head shows moderate volume loss and small-vessel ischemic changes of the supratentorial white matter.? 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 Above management discussed with the patient in detail length with her son Mr Prabhakar in detail- understand and in agreement with the above plan, time spent 50 minutes and 50% time spent on counseling. Time Spent with Patient Time attestation: Total time spent providing and/or coordinating discharge services: Discharge coordination time: Greater than 30 minutes Quality: Stroke Does the patient have a stroke diagnosis?: No Physical Exam Vital Signs: Vital Signs: Last Vital Signs Temp 97.9 F 05/13/21 23:40 Pulse 79 05/13/21 23:40 Resp 14 05/13/21 23:40 BP 100/49 L 05/13/21 23:40 Pulse Ox 92 05/13/21 23:40 BMI result Body Mass Index 18.7 DS: Data Data Completed and Pending Labs on day of discharge: Preliminary micro results at discharge 05/11/21 17:51 Blood Culture - Preliminary Blood - Venous No growth after 48 hours. 05/11/21 17:30 Blood Culture - Preliminary Blood - Venous No growth after 48 hours. Discharge Plan Discharge Anticipated Discharge Date/Time: 05/14/21 11:32 Patient Disposition: Hospice - Home Discharge Diagnosis: FTT, toxic metabolic encephalopathy, Shiva on CKD, multiple electrolytic abnormalities, UTI Referrals: [facility] [Other] - 1 Week Geno Ramsay MD [Primary Care Provider] - 1 Week Discharge Medications: New morphine concentrate 100 mg/5 mL (20 mg/mL) solution 10 mg PO Q6H PRN (Reason: pain) Qty: 118 0RF lorazepam 2 mg/mL concentrate 0.25 mg PO BID PRN (Reason: agitation) Qty: 30 0RF scopolamine base [Transderm-Scop] 1 mg over 3 days Patch 3 Day 1.5 mg EAR-BEHIND Q72H Qty: 4 0RF Discontinued atorvastatin 20 mg tablet 1 tab PO BEDTIME 0RF donepezil 10 mg tablet 1 tab PO DAILY 0RF prednisone 5 mg tablet 1 tab PO DAILY 0RF potassium chloride [Klor-Con M20] 20 mEq tablet,ER particles/crystals 1 tab PO BID 0RF levothyroxine 50 mcg tablet 1 tab PO DAILY 0RF nifedipine 60 mg tablet extended release 1 tab PO DAILY 0RF Discharge Orders: Discharge Order (Routine); Ordered 05/14/21 Ordered By: Bassem Mejia Diet: advance to usual diet Activity on Discharge: As tolerated Stand Alone Forms: Patient Portal Discharge page Care Plan Goals: Patient was admitted for toxic metabolic encephalopathy, failure to thrive, multiple electrolytic abnormalities, SHIVA on CKD, uti also has advanced dementia: Family decided yesterday for comfort measures, going home with comfort meds. Health Concerns: As above. Plan of Treatment: As above. Assessment: As above. For Discharge Date/Time: 05/14/21 12:30
--- NOTE | 2021-05-14 11:49 | MHC.CM.PN ---
pt going home with [facility]
== END 2021-05-14 12:30 | disposition hospice, home (50) | DRG 682 ==
LOC: HO.ED 19:22 → HO.EDOVER 21:03 → HO.S3 05-12 18:31
PROVIDERS: Internal Medicine; Internal Medicine Pulmonary Disease; Physician Assistant; Admitting Provider Internal Medicine; Emergency Provider Internal Medicine; PCP Internal Medicine; Visit Provider Internal Medicine
DX: N17.9 Acute kidney failure, unspecified (principal); E43 Unspecified severe protein-calorie malnutrition; G92.8 Other toxic encephalopathy; N39.0 Urinary tract infection, site not specified; E87.1 Hypo-osmolality and hyponatremia; E87.2 Acidosis; Z68.1 Body mass index [BMI] 19.9 or less, adult; R62.7 Adult failure to thrive; T73.0XXA Starvation, initial encounter; E83.52 Hypercalcemia; N18.9 Chronic kidney disease, unspecified; L89.151 Pressure ulcer of sacral region, stage 1; F03.90 Unspecified dementia, unspecified severity, without behavioral disturbance, psychotic disturbance, mood disturbance, and anxiety; E03.9 Hypothyroidism, unspecified; E87.5 Hyperkalemia; E86.0 Dehydration; Z20.822 Contact with and (suspected) exposure to COVID-19; Z79.899 Other long term (current) drug therapy; Z51.5 Encounter for palliative care
CPT/HCPCS: 0241U; 36415; 70450; 71045; 80048; 80076; 81001; 82140; 82550; 82803; 82947; 83605; 83735; 83880; 84100; 84484; 85025; 85610; 87040; 87086; 87635; 93005; 94640; 96361; 96365; 96366; 96367; 96375; 96376; 99285; 99291; J0456; J0610; J0696; J2060; J2270